=== PATIENT | female | born 1985 | race Caucasian/White ===

== ENCOUNTER 2019-11-29 04:48 | Observation (INO) | payer BC, SELFPAY ==
[2019-11-29] VITALS (46 sets, daily range): BP systolic 116–165; BP diastolic 70–100; PULSE 65–99; RESP 18; TEMP 36.1–36.9; O2SAT 97–100; BMI 28.0
--- NOTE | ~2019-11-29 | US_ITS ---
EXAMINATION: US OB limited w BPP DATE: 11/29/2019 08:02 CDT INDICATION: Vaginal bleeding. Check placenta. TECHNIQUE: Real-time transabdominal obstetric ultrasound. FINDINGS: No prior studies for comparison There is a single living fetus in vertex presentation. The placenta is posterior. The placenta abuts the cervix with 2 adjacent hypoechoic areas, suspicious for marginal placental hemorrhage. These are as measure 2.2 x 2.5 x 1.3 cm and 2.9 x 2.3 x 0.8 cm respectively. cardiac activity and movement is noted with a heart rate of 144 beats per minute. Biophysical profile: breathin of 2 movement: 2 of 2 tone: 2 of 2 Amniotic flud pocket: 2 of 2 Total score: 8 of 8 IMPRESSION: 1. Single living intrauterine in vertex presentation. 2: Total biophysical profile score of 8/8. 3: Low-lying marginal placenta which abuts the cervix. 2 hypoechoic areas are identified along the ma rgin of the placenta, suspicious for marginal placental hemorrhage. Reviewed, dictated and finalized at location A. IMPRESSION: 1. Single living intrauterine in vertex presentation. 2: Total biophysical profile score of 8/8. 3: Low-lying marginal placenta which abuts the cervix. 2 hypoechoic areas are i dentified along the margin of the placenta, suspicious for marginal placental h emorrhage.
[2019-11-29] MEDS: TERBUTALINE SULFATE 1 MG/ML VIAL 0.25 MG SUB-Q (05:31)
[2019-11-29 06:05] LABS: Basophils Absolute Auto 0.1 K/mm3 (0.0-0.1); Basophils Percent Auto 0.6 % (0.2-1.2); Eosinophils Absolute Auto 0.2 K/mm3 (0-0.3); Eosinophils Percent Auto 2.2 % (0-4.4); Hematocrit 27.7 % (37.0-47.0); Hemoglobin 9.3 g/dL (12.0-15.0); Immature Granulocyte Absolute 0.06 K/mm3 (0.00-0.031); Immature Granulocyte Percent A 0.6 % (0-0.5); Lymphocytes Absolute Auto 3.31 K/mm3 (0.9-3.2); Lymphocytes Percent Auto 35.4 % (18.3-44.2); Mean Corpuscular HGB Conc 33.6 g/dl (32-36); Mean Corpuscular Hemoglobin 30.4 pg (26-34); Mean Corpuscular Volume 90.5 fl (80-100); Mean Platelet Volume 12.6 fl (7.4-10.4); Monocytes Absolute Auto 1.1 K/mm3 (0.1-0.6); Monocytes Percent Auto 11.9 % (2.6-8.5); Neutrophils Absolute Auto 4.6 K/mm3 (1.3-6.7); Neutrophils Percent Auto 49.3 % (45.5-73.1); Platelet Count Result 188 k/mm3 (150-375); Red Blood Count 3.06 M/mm3 (4.2-5.4); Red Cell Distribution Width 13.3 % (11.5-14.5); White Blood Count 9.4 K/mm3 (4.5-10.0)
[2019-11-29 06:18] LABS: Alanine Aminotransferase 8 U/L (4-35); Albumin Level 2.9 g/dL (3.5-5.1); Alkaline Phosphatase 201 U/L (38-126); Aspartate Amino Transferase 19 U/L (14-36); Bilirubin,Total 0.3 mg/dL (0.2-1.3); Blood Urea Nitrogen 10 mg/dL (7-17); Calcium 8.4 mg/dL (8.4-10.2); Carbon Dioxide 19 mmol/L (22-30); Chloride 109 mmol/L (98-107); Estimated Glomerular Filt Rate > 60; Glucose 70 mg/dL (65-105); Potassium 3.9 mmol/L (3.4-5.0); Sodium 135 mmol/L (137-145)
[2019-11-29 06:20] LABS: Add Urine Microscopic? YES; Appearance Urine Clear (Clear); Bacteria Urine Trace /hpf; Bilirubin Urine Negative (Negative); Blood Urine 3+ (Negative); Color Urine Yellow (Yellow); Glucose Urine UA Negative (Negative); Ketones Urine Negative (Negative); Leukocyte Esterase Ur Negative LEU/UL (Negative); Nitrate Urine Negative (Negative); Protein Urine 3+ mg/dL (Negative); Squamous Epithelial Cell Urine Rare /hpf (Few); Urobilinogen Urine Negative mg/dL (<2.0); WBC Urine 0-3 /hpf
--- NOTE | 2019-11-29 06:41 | OBADM ---
This patient, Nadege Thompson, admitted to the OB room OB Post 117 for observation. Patient/family oriented to hospital policies and general routines including ID bracelet, bed and alarms, visiting hours, pain management, procedures, bathroom and other care routines, personal items, smoking policy, room service/diet, and visiting hours. Patient/Family are encouraged to report perceived risks to care and to ask questions if they do not understand what they are told or what they should do.
[2019-11-29] MEDS: BETAMETHASONE SOD PHOS/ACETATE 30 MG/5 ML VIAL 12 MG IM (09:32)
--- NOTE | 2019-11-29 12:28 | PM.IMHP ---
H&P: HPI History of Present Illness Chief complaint: vag bleeding Narrative: 34 y/o G1 at 35 2/7 weeks (by LMP 03/27/19 giving EDC 01/01/20), here after a gush of blood at 0430 today. Feels low abdominal pressure. Initially had some uterine irritablilty, but this has resolved. Pregancy complicated by placenta previa. Also had a positive sequential screen leading to a genetic amniocentesis which was negative. Opos/RI/HepBSAg neg/RPR neg/ HIV neg. Noted to have mildly elevated bp. No headache, visual field change. Review of Systems Review of Systems: All systems reviewed & are unremarkable except as noted in HPI and below [facility] Past Medical History Medical History (Updated 11/29/19 @ 12:38 by Adalberto Tian MD) Depression affecting Irritable bowel syndrome affecting Migraine Meds Home Medications and Allergies Home Medications Medication Instructions Recorded Confirmed Type amitriptyline 10 mg PO HS 11/29/19 11/29/19 History calcium carbonate [Tums E-X] 600 mg PO QID PRN 11/29/19 11/29/19 History escitalopram oxalate 20 mg PO DAILY 11/29/19 11/29/19 History zolpidem 10 mg PO HS PRN 11/29/19 11/29/19 History Allergies Allergy/AdvReac Type Severity Reaction Status Date / Time sulfamethoxazole Allergy Unknown Hives Verified 11/29/19 09:28 trimethoprim Allergy Unknown Seizure Verified 11/29/19 09:28 yellow dye Allergy Unknown Swelling Unverified 11/29/19 09:28 of Lip/Tongue/Throat Vital Signs Vital Signs - 24 hr 11/29/19 04:59 11/29/19 05:00 11/29/19 05:02 Temperature Pulse Rate 74 70 Respiratory Rate Blood Pressure 163/95 H 158/100 H Pulse Oximetry 100 11/29/19 05:04 11/29/19 05:09 11/29/19 05:14 Temperature Pulse Rate Respiratory Rate Blood Pressure Pulse Oximetry 100 99 100 11/29/19 05:15 11/29/19 05:19 11/29/19 05:24 Temperature Pulse Rate 71 Respiratory Rate Blood Pressure 139/98 H Pulse Oximetry 99 99 11/29/19 05:29 11/29/19 05:34 11/29/19 05:39 Temperature Pulse Rate Respiratory Rate Blood Pressure Pulse Oximetry 99 100 100 11/29/19 05:44 11/29/19 05:48 11/29/19 05:49 Temperature Pulse Rate 81 Respiratory Rate Blood Pressure 136/90 Pulse Oximetry 100 99 11/29/19 06:44 11/29/19 06:45 11/29/19 06:50 Temperature 36.1 C L Pulse Rate 79 Respiratory Rate 18 Blood Pressure 137/89 Pulse Oximetry 99 99 11/29/19 06:55 11/29/19 07:00 11/29/19 07:05 Temperature Pulse Rate 83 Respiratory Rate Blood Pressure 131/77 Pulse Oximetry 99 99 98 11/29/19 07:10 11/29/19 07:15 11/29/19 07:20 Temperature Pulse Rate Respiratory Rate Blood Pressure Pulse Oximetry 99 97 97 11/29/19 07:30 11/29/19 07:50 11/29/19 07:55 Temperature Pulse Rate 99 Respiratory Rate Blood Pressure 165/96 H Pulse Oximetry 99 98 11/29/19 08:00 11/29/19 08:01 11/29/19 08:30 Temperature Pulse Rate 78 76 Respiratory Rate Blood Pressure 127/84 136/92 H Pulse Oximetry 99 11/29/19 09:00 11/29/19 10:00 11/29/19 11:00 Temperature Pulse Rate 72 70 79 Respiratory Rate Blood Pressure 146/91 H 135/91 H 138/87 Pulse Oximetry 11/29/19 12:00 Temperature Pulse Rate 87 Respiratory Rate Blood Pressure 143/85 H Pulse Oximetry Exam Const: Orientation/consciousness: patient oriented x3 Other: Well-developed, well-nourished female in no acute distress. Neck: Thyroid: thyroid normal Lymphatic: no lymphadenopathy noted (in neck, axilla or inguinal nodes) Resp: Effort & Inspection: normal respiratory effort Auscultation: clear to auscultation bilaterally Cardio: Rate: regular rate Rhythm: regular rhythm Heart sounds: S1 normal heart sound present and S2 normal heart sound present GI: Other: ABD: Soft, nontender, nondistended. No guarding or rebound tenderness. No hepatosplenomegaly. Gravid. NST reactive. TOCO: no con
--- NOTE | 2019-11-29 13:45 | PC.NURSE ---
Discussed pt's allergy to yellow dye and prompt that showed potential for allergic reaction when I started to enter order for Tylenol ES. Pharmacy checked ingredient list and verified there is no yellow dye in our Tylenol ES.
[2019-11-29] MEDS: ACETAMINOPHEN 500 MG TABLET 1000 MG PO (14:00)
--- NOTE | 2019-11-29 16:41 | PHAR ---
The patient's home meds of Tums EX 750mg, Escitalopram 20mg, Zolpidem 10mg, and Amitriptyline 10mg have been verified.
[2019-11-29] MEDS: ONDANSETRON HCL ODT 4 MG TABLET PO (21:49)
[2019-11-30] MEDS: ACETAMINOPHEN 500 MG TABLET 1000 MG PO ×2 (03:14→09:42)
[2019-11-30 03:24] VITALS: RESP 20; TEMP 36.6
[2019-11-30 03:25] VITALS: BP 125/75; PULSE 78
[2019-11-30 04:16] LABS: Hematocrit 26.3 % (37.0-47.0); Mean Corpuscular HGB Conc 34.2 g/dl (32-36); Mean Corpuscular Hemoglobin 30.9 pg (26-34); Mean Corpuscular Volume 90.4 fl (80-100); Mean Platelet Volume 12.3 fl (7.4-10.4); Platelet Count Result 156 k/mm3 (150-375); Red Blood Count 2.91 M/mm3 (4.2-5.4); Red Cell Distribution Width 13.2 % (11.5-14.5); White Blood Count 10.6 K/mm3 (4.5-10.0)
[2019-11-30 04:34] LABS: Alanine Aminotransferase 10 U/L (4-35); Alkaline Phosphatase 208 U/L (38-126); Aspartate Amino Transferase 21 U/L (14-36); Bilirubin,Total 0.3 mg/dL (0.2-1.3); Blood Urea Nitrogen 11 mg/dL (7-17); Calcium 9.4 mg/dL (8.4-10.2); Carbon Dioxide 20 mmol/L (22-30); Chloride 106 mmol/L (98-107); Estimated CRCL calculation 66 ml/min; Estimated Glomerular Filt Rate > 60; Glucose 112 mg/dL (65-105); Potassium 4.5 mmol/L (3.4-5.0); Sodium 132 mmol/L (137-145); Uric Acid 8.1 mg/dL (2.5-7.5)
[2019-11-30 06:22] VITALS: BP 137/83; PULSE 85; TEMP 36.4
[2019-11-30] MEDS: BETAMETHASONE SOD PHOS/ACETATE 30 MG/5 ML VIAL 12 MG IM (09:30)
[2019-11-30 10:03] VITALS: BP 136/91; PULSE 84; PULSE 89
--- NOTE | 2019-11-30 10:33 | PC.NURSE ---
Verified with pharmacy that the Procardia capsule the hospital is currently using doesn't contain yellow dye. It does have a blue and a red dye in it.
[2019-11-30 10:41] VITALS: BP 135/85; PULSE 83
[2019-11-30] MEDS: NIFEdipine 10 MG CAPSULE PO ×2 (10:42→11:46)
--- NOTE | 2019-11-30 11:27 | P.PNOB_ITS ---
OB - PN: Subj Subjective Date/time seen: 11/30/19 11:27 Narrative: Feels occasional contractions. No vaginal bleeding. 24 hour urine collection nearly finished. No headache. Low abdominal pressure is intermittent, but not present currently. OB - PN: Obj Data Labs CBC & Chem 7: 11/30/19 04:10 11/30/19 04:10 Labs: Laboratory Results - last 24 hr 11/30/19 11/30/19 04:10 04:10 WBC 10.6 H RBC 2.91 L Hgb 9.0 L Hct 26.3 L MCV 90.4 MCH 30.9 MCHC 34.2 RDW 13.2 Plt Count 156 MPV 12.3 H Sodium 132 L Potassium 4.5 Chloride 106 Carbon Dioxide 20 L BUN 11 Creatinine 0.90 Estim Creat Clear Calc 66 Estimated GFR > 60 Glucose 112 H Uric Acid 8.1 H Calcium 9.4 Total Bilirubin 0.3 AST 21 ALT 10 Alkaline Phosphatase 208 H Total Protein 6.0 L Albumin 3.0 L OB - PN A/P Assessment and Plan (1) Preeclampsia: Code(s): O14.90 - Unspecified pre-eclampsia, unspecified trimester Status: Acute Assessment and Plan: Have finished betamethasone course. Plan to send home after 24 hour urine collection is complete. Plan Procardia 10 mg po q 6 hours in an effort to reduc e chances of vaginal bleeding. I will phone her tomorrow with results. (2) Vaginal bleeding in patient after first trimester with placenta previa: Code(s): O44.31 - Partial placenta previa with hemorrhage, first trimester Status: Acute Review of Systems Review of Systems: All systems reviewed & are unremarkable except as noted in HPI and below Exam Const: Other: AVSS. BP 130-140/80-90 Resp: Effort & Inspection: normal respiratory effort Cardio: Rate: regular rate GI: Other: Abdomen soft, nontender, gravid. NST reactive. TOCO: occasional contractions, have improved after a dose of nifedipine. Bedside ultrasound exam by me is unchanged from yesterday. Marginal posterior previa. No suggestion today of abruptio. Vertex. Adequate AFV. motion and breathing noted.
[2019-11-30] MEDS: FAMOTIDINE 20 MG/2 ML VIAL IV PUSH (11:49)
[2019-11-30 11:53] VITALS: BMI 34.3
[2019-11-30 12:42] LABS: Collection Time Urine 24 HOURS
[2019-11-30 12:55] LABS: Patient Weight 175 Lbs; Total Volume 24 Hour Urine 1400 ml
[2019-11-30 13:01] LABS: Creatinine Clearance Urine 74.3 ml/min (75-125); Creatinine Urine 69.9 mg/dL; Total Protein Urine Random 84 mg/dL
[2019-11-30 13:05] LABS: Total Protein Urine 24 Hr 1176 MG/DAY (28-141)
== END 2019-11-30 12:32 | disposition home or self-care (01) ==
PROVIDERS: Admitting Provider Obstetrics & Gynecology; Visit Provider Obstetrics & Gynecology
DX: O44.33 Partial placenta previa with hemorrhage, third trimester (principal); O14.93 Unspecified pre-eclampsia, third trimester; Z3A.35 35 weeks gestation of pregnancy
CPT/HCPCS: 36415; 59025; 76815; 76819; 80053; 81001; 81050; 82575; 84156; 84550; 85025; 85027; 96372; 96374; A9270; G0378; G0379; J0702; J3105

== ENCOUNTER 2019-12-01 15:29 | Inpatient (IN) | payer BC, SELFPAY ==
[2019-12-01] VITALS (80 sets, daily range): BP systolic 75–143; BP diastolic 46–118; PULSE 63–236; RESP 12–18; TEMP 36.2–37; O2SAT 82–100; BMI 33.5
--- NOTE | 2019-12-01 15:58 | OBADM ---
This patient, Nadege Thompson, admitted to the OB room Labor/Delivery/Recovery 120 for observation. Patient/family oriented to hospital policies and general routines including ID bracelet, bed and alarms, visiting hours, pain management, procedures, bathroom and other care routines, personal items, smoking policy, room service/diet, and visiting hours. Patient/Family are encouraged to report perceived risks to care and to ask questions if they do not understand what they are told or what they should do.
[2019-12-01 16:28] LABS: Hematocrit 25.2 % (37.0-47.0); Hemoglobin 8.3 g/dL (12.0-15.0); Immature Platelet Fraction Pct 10.1 % (0.9-11.2); Mean Corpuscular HGB Conc 32.9 g/dl (32-36); Mean Platelet Volume 13.2 fl (7.4-10.4); Platelet Count Result 203 k/mm3 (150-375); Red Blood Count 2.68 M/mm3 (4.2-5.4); Red Cell Distribution Width 13.7 % (11.5-14.5); White Blood Count 15.7 K/mm3 (4.5-10.0)
[2019-12-01 16:42] LABS: Alanine Aminotransferase 13 U/L (4-35); Alkaline Phosphatase 191 U/L (38-126); Aspartate Amino Transferase 36 U/L (14-36); Bilirubin,Total 0.3 mg/dL (0.2-1.3); Blood Urea Nitrogen 18 mg/dL (7-17); Calcium 8.1 mg/dL (8.4-10.2); Carbon Dioxide 20 mmol/L (22-30); Chloride 109 mmol/L (98-107); Estimated Glomerular Filt Rate 58; Glucose 137 mg/dL (65-105); Potassium 4.1 mmol/L (3.4-5.0); Sodium 134 mmol/L (137-145); Uric Acid 9.3 mg/dL (2.5-7.5)
[2019-12-01 16:49] LABS: Lymphocytes Absolute Manual 1.09 K/mm3 (1.1-4.5); Metamyelocytes Percent 4 %; Monocytes Absolute Manual 0.94 K/mm3 (0.1-0.90); Monocytes Percent Manual 6 % (3-9); Neutrophils Percent Manual 83 % (46-73); Nucleated Red Blood Cells 1 %; Total Cells Counted 100
[2019-12-01 16:51] LABS: Platelet Estimate Adequate (Adequate)
[2019-12-01] MEDS: FAMOTIDINE 20 MG/2 ML VIAL IV PUSH (17:38)
[2019-12-01] MEDS: ONDANSETRON INJ 4 MG/2 ML VIAL IV PUSH ×2 (17:39→22:44)
[2019-12-01] MEDS: LACTATED RINGERS 1,000 ML 125 ML IV CONT (17:43)
--- NOTE | 2019-12-01 17:47 | LDADM ---
This patient, Nadege Thompson, was admitted to Labor/Delivery/Recovery 120 on 12/01/19 at 15:30. Plans for labor, pain management and were discussed with patient. Patient/family oriented to hospital policies and general routines including ID bracelet, bed and alarms, visiting hours, pain management, procedures, bathroom and other care routines, personal items, smoking policy, room service/diet and guest tray routines, security routines, and visiting hours. Patient/Family are encouraged to report perceived risks to care and to ask questions if they do not understand what they are told or what they should do. See OBIX for further documentation.
--- NOTE | 2019-12-01 18:11 | PM.IMHP ---
H&P: HPI History of Present Illness Chief complaint: headache Narrative: 34 y/o G1 at 35 4/7 weeks here complaining of headache. 24 hour urine just resulted at 1176mg protein. Headache began at 1300. No vaginal bleeding. Had some visual blurring for a few seconds at 1400, but none since. Also complaining of heartburn. Good movement. No contractions. Had a cough for a couple hours yesterday, none today. No fever. No sick contacts. Review of Systems Review of Systems: All systems reviewed & are unremarkable except as noted in HPI and below PMFSH Past Medical History Medical History Depression affecting Irritable bowel syndrome affecting Migraine Social History Social History Smoking status: Former smoker Substance use: never Gender identity (if verbalized by the patient): Female Spiritual care concerns: No Meds Home Medications and Allergies Home Medications Medication Instructions Recorded Confirmed Type amitriptyline 10 mg PO HS 11/29/19 11/29/19 History calcium carbonate [Tums Extra 600 mg PO QID PRN 11/29/19 11/29/19 History Strength Smoothies] escitalopram oxalate 20 mg PO HS 11/29/19 11/29/19 History zolpidem 10 mg PO HS PRN 11/29/19 11/29/19 History ferrous sulfate 325 mg PO BID #30 tablet 11/30/19 Rx nifedipine [Procardia] 10 mg PO Q6H #30 cap 11/30/19 Rx Allergies Allergy/AdvReac Type Severity Reaction Status Date / Time sulfamethoxazole Allergy Unknown Hives Verified 11/29/19 09:28 trimethoprim Allergy Unknown Seizure Verified 11/29/19 09:28 yellow dye Allergy Unknown Swelling Verified 11/29/19 13:52 of Lip/Tongue/Throat Vital Signs Vital Signs - 24 hr 12/01/19 16:01 12/01/19 16:30 12/01/19 16:31 Temperature 37.0 C Pulse Rate 86 84 Blood Pressure 130/88 119/80 Pulse Oximetry 12/01/19 16:46 12/01/19 17:01 12/01/19 17:16 Temperature Pulse Rate 74 86 79 Blood Pressure 111/72 120/78 127/82 Pulse Oximetry 12/01/19 17:25 12/01/19 17:31 12/01/19 17:36 Temperature Pulse Rate 81 Blood Pressure 137/87 Pulse Oximetry 86 L 100 100 12/01/19 17:41 12/01/19 17:46 12/01/19 17:51 Temperature Pulse Rate 71 Blood Pressure 132/118 H Pulse Oximetry 100 99 100 12/01/19 17:56 12/01/19 18:01 12/01/19 18:06 Temperature Pulse Rate 79 Blood Pressure 138/86 Pulse Oximetry 100 100 100 Exam Const: Orientation/consciousness: patient oriented x3 Other: Well-developed, well-nourished female in no acute distress. Neck: Thyroid: thyroid normal Lymphatic: no lymphadenopathy noted (in neck, axilla or inguinal nodes) Resp: Effort & Inspection: normal respiratory effort Auscultation: clear to auscultation bilaterally Cardio: Rate: regular rate Rhythm: regular rhythm Heart sounds: S1 normal heart sound present and S2 normal heart sound present GI: Other: ABD: Soft, nontender, nondistended. Gravid. No guarding or rebound tenderness. No hepatosplenomegaly. FHR 140 reactive, category I. TOCO: no contractions. : General: Yes no CVA tenderness Other: Deferred. Back/Spine/Pelvis: Back: no CVA tenderness Skin: General skin exam: normal color and no rashes or lesions noted Neuro: General: patient oriented x3 Extrem: Other: Extremities: nontender with 1+ edema. Psych: Mental Status: mental status grossly normal Affect: normal affect H&P: Results Labs Labs: Short CBC 12/01/19 Range/Units 16:03 WBC 15.7 H (4.5-10.0) K/mm3 Hgb 8.3 L (12.0-15.0) g/dL Hct 25.2 L (37.0-47.0) % Plt Count 203 (150-375) k/mm3 BMP 12/01/19 16:03 Sodium 134 L Potassium 4.1 Chloride 109 H Carbon Dioxide 20 L BUN 18 H Creatinine 1.10 H Glucose 137 H Calcium 8.1 L Liver Function 12/01/19 Range/Units 16:03 Total Bilirubin 0.3 (0.2-1.3) mg/dL AST 36
--- NOTE | 2019-12-01 18:24 | WPDANESEPPF ---
Anes - Initial Pre Proc Eval Date/Time: 12/01/19 18:24 Surgeon: Adalberto Tian MD Pre Op Diagnosis: headache Patient Data Age: 34 Gender: F Height: 5 ft Weight: 78 kg Last Vital Signs Temp 36.6 C 12/01/19 17:30 Pulse 79 12/01/19 18:01 BP 138/86 12/01/19 18:01 Pulse Ox 100 12/01/19 18:06 Allergies Allergy/AdvReac Type Severity Reaction Status Date / Time sulfamethoxazole Allergy Unknown Hives Verified 11/29/19 09:28 trimethoprim Allergy Unknown Seizure Verified 11/29/19 09:28 yellow dye Allergy Unknown Swelling Verified 11/29/19 13:52 of Lip/Tongue/Throat Home Medications Medication Instructions Recorded Confirmed Type amitriptyline 10 mg PO HS 11/29/19 11/29/19 History calcium carbonate [Tums Extra 600 mg PO QID PRN 11/29/19 11/29/19 History Strength Smoothies] escitalopram oxalate 20 mg PO HS 11/29/19 11/29/19 History zolpidem 10 mg PO HS PRN 11/29/19 11/29/19 History ferrous sulfate 325 mg PO BID #30 tablet 11/30/19 Rx nifedipine [Procardia] 10 mg PO Q6H #30 cap 11/30/19 Rx Laboratory Tests 12/01/19 12/01/19 12/01/19 16:03 16:03 17:19 WBC 15.7 K/mm3 H K/mm3 (4.5-10.0) RBC 2.68 M/mm3 L M/mm3 (4.2-5.4) Hgb 8.3 g/dL L g/dL (12.0-15.0) Hct 25.2 % L % (37.0-47.0) MCV 94.0 fl fl (80-100) MCH 31.0 pg pg (26-34) MCHC 32.9 g/dl g/dl (32-36) RDW 13.7 % % (11.5-14.5) Plt Count 203 k/mm3 k/mm3 (150-375) MPV 13.2 fl H fl (7.4-10.4) Immature Gran % (Auto) Not Reportable Neut % (Auto) Not Reportable Lymph % (Auto) Not Reportable [place] % (Auto) Not Reportable Eos % (Auto) Not Reportable Baso % (Auto) Not Reportable Lymph # (Auto) Not Reportable [place] # (Auto) Not Reportable Eos # (Auto) Not Reportable Baso # (Auto) Not Reportable Abs Immat Gran (auto) Not Reportable Absolute Neuts (auto) Not Reportable Absolute Nucleated RBC Not Reportable Total Counted 100 Neutrophils % (Manual) 83 % H % (46-73) Lymphocytes % (Manual) 7.0 % L % (18-44) Monocytes % (Manual) 6 % % (3-9) Metamyelocytes % 4 % % Nucleated RBC % Not Reportable Abs Lymphs (Manual) 1.09 K/mm3 L K/mm3 (1.1-4.5) Abs Monocytes (Manual) 0.94 K/mm3 H K/mm3 (0.1-0.90) Nucleated RBCs 1 % % Platelet Estimate Adequate (Adequate) % Immature Plt Fraction 10.1 % % (0.9-11.2) Sodium 134 mmol/L L mmol/L (137-145) Potassium 4.1 mmol/L mmol/L (3.4-5.0) Chloride 109 mmol/L H mmol/L (98-107) Carbon Dioxide 20 mmol/L L mmol/L (22-30) BUN 18 mg/dL H mg/dL (7-17) Creatinine 1.10 mg/dL H mg/dL (0.7-1.0) Estim Creat Clear Calc Not Reportable Estimated GFR 58 L (59 - ) Glucose 137 mg/dL H mg/dL (65-105) Uric Acid 9.3 mg/dL H mg/dL (2.5-7.5) Calcium 8.1 mg/dL L mg/dL (8.4-10.2) Total Bilirubin 0.3 mg/dL mg/dL (0.2-1.3) AST 36 U/L U/L (14-36) ALT 13 U/L U/L (4-35) Alkaline Phosphatase 191 U/L H U/L (38-126) Total Protein 6.0 g/dL L g/dL (6.3-8.2) Albumin 3.0 g/dL L g/dL (3.5-5.1) RPR Pending SARS-CoV-2 RNA (RT-PCR) Blood Type Antibody Screen 12/01/19 12/01/19 17:19 18:08 WBC RBC Hgb Hct MCV MCH MCHC RDW Plt Count MPV Immature Gran % (Auto) Neut % (Auto) Lymph % (Auto) [place] % (Auto) Eos % (Auto) Baso % (Auto) Lymph # (Auto) [place] # (Aut
--- NOTE | 2019-12-01 19:51 | P.PCNOB_ITS ---
OB - Delivery Note Procedure Delivery date: 12/01/19 Procedure: Procedures Operation Date: 12/01/19 18:45 <No data on this case meets the specified criteria> Primary low transverse delivery events: Pre-Eclampsia Estimated blood loss (mL): 600 Anesthesia type: Spinal Disposition: PACU Complications: None Narrative: The patient was taken to the operating room where she was prepared and draped in the usual sterile fashion in dorsal supine position with a le ftward tilt. She received cefazolin preoperatively. Spinal anesthesia was found to be adequate. A Pfannenstiel skin incision was made and carried through to the underlying layer of the fascia. The fascia was incised in the midline and the incision was extended laterally. The fascia was dissected free of the underlying rectus muscles. The rectus muscles were in the midline. The peritoneum was identified, tented up and entered sharply. The peritoneal incision was extended superiorly and inferiorly with good visualization of the bladder. The bladder blade was placed. The vesicouterine peritoneum was identified, tented up and entered sharply. The incision was extended laterally and the bladder flap was developed. The bladder blade was replaced. The uterus was then incised sharply in a transverse fashion along the lower uterine segment. The incision was extended laterally. The infant's head was delivered atraumatically to the sterile field, followed by the body. The nose and mouth were bulb suctioned. After a delay, the cord was clamped and cut. The infant was handed off the field. Cord blood was collected. The placenta was removed manually and was passed off the field. The uterus was exteriorized and cleared of all clots and debris. The uterine incision was reapproximated using 0 Monocryl in a running, locked fashion. A second, imbricating layer of the same suture was placed. Excellent hemostasis resulted as did excellent reapproximation of the normal anatomy. The uterus was returned the abdomen. The pelvis was irrigated copiously with warmed normal saline. Rigorous hemostasis was assured. The fascial layer was reapproximated using 0 Vicryl in a running fashion. The skin was closed with a running, subcuticular stitch of 4 0 Vicryl. Dermaflex was applied externally. Sponge, lap, needle and instrument counts were correct. The patient was taken to the recovery room in stable condition. The infant went to the nursery in stable condition. I was present and scrubbed the entire procedure. [place] Baby Date of : 12/01/19 Time of : 19:52 Weeks of gestation at delivery: 35 gender: Female Weight (pounds): 5 Weight (ounces): 1 presentation: vertex Placenta delivery description: Manual Removal and Normal Configuration cord vessel description: 3 Vessels score one minute: 8 score five minutes: 8
--- NOTE | 2019-12-01 19:53 | PM.OBDSVD ---
DS: Diagnosis Admitting Diagnosis Admitting Diagnosis: IUP at 35 weeks Preeclampsia Headache Placenta previa OB - DS: Summary OB Procedures : PIH Mgmt OB Procedures Intrapartum: OB Procedures: : Transfusion Peripartum Data Procedures: Procedures Operation Date: 12/01/19 18:45 <No data on this case meets the specified criteria> Primary LTCS Time Spent with Patient Time attestation: Total time spent providing and/or coordinating discharge services: DS: Data Data Completed and Pending Labs on day of discharge: Labs from last 24 hours 12/01/19 12/01/19 12/01/19 18:30 18:08 17:19 WBC RBC Hgb Hct MCV MCH MCHC RDW Plt Count MPV Immature Gran % (Auto) Neut % (Auto) Lymph % (Auto) [place] % (Auto) Eos % (Auto) Baso % (Auto) Lymph # (Auto) [place] # (Auto) Eos # (Auto) Baso # (Auto) Abs Immat Gran (auto) Absolute Neuts (auto) Absolute Nucleated RBC Total Counted Neutrophils % (Manual) Lymphocytes % (Manual) Monocytes % (Manual) Metamyelocytes % Nucleated RBC % Abs Lymphs (Manual) Abs Monocytes (Manual) Nucleated RBCs Platelet Estimate % Immature Plt Fraction Sodium Potassium Chloride Carbon Dioxide BUN Creatinine Estim Creat Clear Calc Estimated GFR Glucose Uric Acid Calcium Total Bilirubin AST ALT Alkaline Phosphatase Total Protein Albumin RPR Pending SARS-CoV-2 RNA (RT-PCR) Pending Blood Type O Positive Antibody Screen Negative 12/01/19 12/01/19 16:03 16:03 WBC 15.7 H RBC 2.68 L Hgb 8.3 L Hct 25.2 L MCV 94.0 MCH 31.0 MCHC 32.9 RDW 13.7 Plt Count 203 MPV 13.2 H Immature Gran % (Auto) Not Reportable Neut % (Auto) Not Reportable Lymph % (Auto) Not Reportable [place] % (Auto) Not Reportable Eos % (Auto) Not Reportable Baso % (Auto) Not Reportable Lymph # (Auto) Not Reportable [place] # (Auto) Not Reportable Eos # (Auto) Not Reportable Baso # (Auto) Not Reportable Abs Immat Gran (auto) Not Reportable Absolute Neuts (auto) Not Reportable Absolute Nucleated RBC Not Reportable Total Counted 100 Neutrophils % (Manual) 83 H Lymphocytes % (Manual) 7.0 L Monocytes % (Manual) 6 Metamyelocytes % 4 Nucleated RBC % Not Reportable Abs Lymphs (Manual) 1.09 L Abs Monocytes (Manual) 0.94 H Nucleated RBCs 1 Platelet Estimate Adequate % Immature Plt Fraction 10.1 Sodium 134 L Potassium 4.1 Chloride 109 H Carbon Dioxide 20 L BUN 18 H Creatinine 1.10 H Estim Creat Clear Calc Not Reportable Estimated GFR 58 L Glucose 137 H Uric Acid 9.3 H Calcium 8.1 L Total Bilirubin 0.3 AST 36 ALT 13 Alkaline Phosphatase 191 H Total Protein 6.0 L Albumin 3.0 L RPR SARS-CoV-2 RNA (RT-PCR) Blood Type Antibody Screen Discharge Plan Discharge Attending physician on discharge: Adalberto Tian Discharging Clinician: Adalberto Tian Patient Disposition: Home, Self-Care Activity: may shower, may drive after 2 weeks and pelvic rest Diet: regular Wound Care Instructions: incision open to air Discharge Instructions: Call or return if temperature above 100.4? F, increased abdominal pain, increased vaginal bleeding or any new problems. Stand Alone Forms: General Discharge Information Follow-up/Referrals: Adalberto Tian MD [Physician] - (4 weeks) Discharge Medications: New KPN Tablet 1 tablet PO DAILY Qty: 90 RF: 0 oxycodone-acetaminophen [Percocet] 5-325 mg tablet 1 - 2 tablet PO Q6H PRN (Reason: pain) Qty: 30 RF: 0 ibuprofen 600 mg tablet 600 mg PO Q6H PRN (Reason: cramps) Qty: 30 RF: 0 Niferex (Sumalate-Quatrefolic) 150 mg iron- 60 mg-1 mg tablet 1 tablet PO DAILY Qty: 30 RF: 0 Continued amitriptyline 10 mg tablet 10 mg PO HS RF: 0 escitalo
[2019-12-01] MEDS: OXYTOCIN 30 UNITS/NS 500 ML 30 UNITS/500 ML BAG 125 UNITS (20:27)
[2019-12-01] MEDS: MAGNESIUM SULF 4 GM/WATER100ML 4 GM/100 ML BAG IVPB (20:27)
--- NOTE | 2019-12-01 20:27 | SUR.PHASEI ---
MAGNESIUM BOLUS INITIATED PER ORDER. Scott AVILES RN AT BEDSIDE TO VERIFY MAGNESIUM INFUSION RATE.
[2019-12-01] MEDS: MORPHINE SULFATE 2 MG/ML INJ 3 MG IV PUSH ×2 (20:32→21:15)
[2019-12-01] MEDS: MAGNESIUM SULF 20GM/WATER500ML 500 ML 25 MG IV CONT (21:00)
--- NOTE | 2019-12-01 21:00 | SUR.PHASEI ---
MAGNESIUM BOLUS COMPLETED, MAGNESIUM MAINTENANCE DOSE STARTED. Scott AVILES AT BESIDE TO VERIFY MAGNESIUM INFUSION RATE.
--- NOTE | 2019-12-01 21:30 | SUR.PHASEI ---
[facility] PERFORMED PRIOR TO TRANSFER. UNDERPAD, GOWN AND LINENS CHANGED. PATIENT STATES PAIN IS 2/10 AND SHE IS ABLE TO REST COMFORTABLY.
--- NOTE | 2019-12-01 22:00 | PC.NURSE ---
Patient tolerating clear liquid diet at time of transfer without complaint of nasuea or emesis. Patient resting comfortably. Report given to AZUL Cabrera on unit for transfer.
[2019-12-01] MEDS: LORATADINE 10 MG TABLET PO (22:08)
[2019-12-01] MEDS: KETOROLAC 30 MG/ML VIAL (*BKC) IV PUSH (22:39)
[2019-12-01] MEDS: LACTATED RINGERS 500 ML 999 ML IV CONT (23:30)
[2019-12-01] MEDS: MISOPROSTOL 200 MCG TABLET 1000 MCG RECTAL (23:44)
[2019-12-01 23:51] LABS: Hematocrit 17.1 % (37.0-47.0); Hemoglobin 5.5 g/dL (12.0-15.0)
[2019-12-02] VITALS (24 sets, daily range): BP systolic 85–168; BP diastolic 60–114; PULSE 68–119; RESP 12–18; TEMP 36.3–37.1; O2SAT 92–100
--- NOTE | 2019-12-02 00:10 | PM.OBPNVD ---
OB - PN: Subj Subjective Date/time seen: 12/02/19 00:10 Called to see patient. She has had an increase in vaginal bleeding (total approximately 300mL), is pale and complains of incisional burning. No headache. OB - PN: Obj Data Labs CBC & Chem 7: 12/01/19 23:34 12/01/19 16:03 Labs: Laboratory Results - last 24 hr 12/01/19 12/01/19 12/01/19 16:03 16:03 18:30 WBC 15.7 H RBC 2.68 L Hgb 8.3 L Hct 25.2 L MCV 94.0 MCH 31.0 MCHC 32.9 RDW 13.7 Plt Count 203 MPV 13.2 H Immature Gran % (Auto) Not Reportable Neut % (Auto) Not Reportable Lymph % (Auto) Not Reportable [place] % (Auto) Not Reportable Eos % (Auto) Not Reportable Baso % (Auto) Not Reportable Lymph # (Auto) Not Reportable [place] # (Auto) Not Reportable Eos # (Auto) Not Reportable Baso # (Auto) Not Reportable Abs Immat Gran (auto) Not Reportable Absolute Neuts (auto) Not Reportable Absolute Nucleated RBC Not Reportable Total Counted 100 Neutrophils % (Manual) 83 H Lymphocytes % (Manual) 7.0 L Monocytes % (Manual) 6 Metamyelocytes % 4 Nucleated RBC % Not Reportable Abs Lymphs (Manual) 1.09 L Abs Monocytes (Manual) 0.94 H Nucleated RBCs 1 Platelet Estimate Adequate % Immature Plt Fraction 10.1 Sodium 134 L Potassium 4.1 Chloride 109 H Carbon Dioxide 20 L BUN 18 H Creatinine 1.10 H Estim Creat Clear Calc Not Reportable Estimated GFR 58 L Glucose 137 H Uric Acid 9.3 H Calcium 8.1 L Total Bilirubin 0.3 AST 36 ALT 13 Alkaline Phosphatase 191 H Total Protein 6.0 L Albumin 3.0 L Blood Type O Positive Antibody Screen Negative Crossmatch See Detail 12/01/19 23:34 WBC RBC Hgb 5.5 L* Hct 17.1 L* MCV MCH MCHC RDW Plt Count MPV Immature Gran % (Auto) Neut % (Auto) Lymph % (Auto) [place] % (Auto) Eos % (Auto) Baso % (Auto) Lymph # (Auto) [place] # (Auto) Eos # (Auto) Baso # (Auto) Abs Immat Gran (auto) Absolute Neuts (auto) Absolute Nucleated RBC Total Counted Neutrophils % (Manual) Lymphocytes % (Manual) Monocytes % (Manual) Metamyelocytes % Nucleated RBC % Abs Lymphs (Manual) Abs Monocytes (Manual) Nucleated RBCs Platelet Estimate % Immature Plt Fraction Sodium Potassium Chloride Carbon Dioxide BUN Creatinine Estim Creat Clear Calc Estimated GFR Glucose Uric Acid Calcium Total Bilirubin AST ALT Alkaline Phosphatase Total Protein Albumin Blood Type Antibody Screen Crossmatch OB - PN A/P Plan Comments: A: Anemia likely secondary to blood loss. Have treated with oxytocin, misoprostol 1000mcg MA, IV fluids. P: Plan transfusion of 2 units PRBCs. Hold magnesium sulfate for now. Exam Const: Other: BP 85/55. HR 88. SaO2 98% on RA. GI: Other: ABD soft, appropriately tender. Incision c/d/i. Fundus firm at umbilicus.
[2019-12-02] MEDS: MORPHINE SULFATE 2 MG/ML INJ IV PUSH (01:10)
[2019-12-02] MEDS: NALBUPHINE HCL 10 MG/ML AMPUL 2 MG IV PUSH ×4 (01:11→23:27)
[2019-12-02] MEDS: CARBOPROST TROMETHAMINE 250 MCG/ML AMPUL IM (02:02)
--- NOTE | 2019-12-02 03:21 | PC.NURSE ---
This patient, Nadege Thompson, was received from Labor and Delivery on 12/02/19 at 2207. Personal belongings list checked and signed. Patient/family oriented to unit policies and routines
[2019-12-02] MEDS: OXYTOCIN 30 UNITS/NS 500 ML 30 UNITS/500 ML BAG 125 UNITS IV CONT (03:40)
[2019-12-02 06:58] LABS: Rapid Plasma Reagin Non-Reactive (NonReactive)
--- NOTE | 2019-12-02 07:15 | PM.OBPNVD ---
OB - PN: Subj Subjective Date/time seen: 12/02/19 07:15 Interval history: Patient doing well this AM. She is worried about seeing her baby has the baby is being transferred. She is currently on isolation for potential COVID-19 exposure. She was tested last night and the results are pending. she has note yet ambulated our of bed. She has not yet attempted PO. She reports adequate pain control. Her bleeding is improved. She reports normal lochia. She denies fever, chills, N/V. She has not yet passed flatus. Patient comments: no complaints and pain well controlled; no flatus present OB - PN: Obj Data Labs CBC & Chem 7: 12/01/19 23:34 12/01/19 16:03 Labs: Laboratory Results - last 24 hr 12/01/19 12/01/19 12/01/19 16:03 16:03 17:19 WBC 15.7 H RBC 2.68 L Hgb 8.3 L Hct 25.2 L MCV 94.0 MCH 31.0 MCHC 32.9 RDW 13.7 Plt Count 203 MPV 13.2 H Immature Gran % (Auto) Not Reportable Neut % (Auto) Not Reportable Lymph % (Auto) Not Reportable [facility] % (Auto) Not Reportable Eos % (Auto) Not Reportable Baso % (Auto) Not Reportable Lymph # (Auto) Not Reportable [facility] # (Auto) Not Reportable Eos # (Auto) Not Reportable Baso # (Auto) Not Reportable Abs Immat Gran (auto) Not Reportable Absolute Neuts (auto) Not Reportable Absolute Nucleated RBC Not Reportable Total Counted 100 Neutrophils % (Manual) 83 H Lymphocytes % (Manual) 7.0 L Monocytes % (Manual) 6 Metamyelocytes % 4 Nucleated RBC % Not Reportable Abs Lymphs (Manual) 1.09 L Abs Monocytes (Manual) 0.94 H Nucleated RBCs 1 Platelet Estimate Adequate % Immature Plt Fraction 10.1 Sodium 134 L Potassium 4.1 Chloride 109 H Carbon Dioxide 20 L BUN 18 H Creatinine 1.10 H Estim Creat Clear Calc Not Reportable Estimated GFR 58 L Glucose 137 H Uric Acid 9.3 H Calcium 8.1 L Total Bilirubin 0.3 AST 36 ALT 13 Alkaline Phosphatase 191 H Total Protein 6.0 L Albumin 3.0 L RPR Non-reactive Blood Type Antibody Screen Crossmatch 12/01/19 12/01/19 18:30 23:34 WBC RBC Hgb 5.5 L* Hct 17.1 L* MCV MCH MCHC RDW Plt Count MPV Immature Gran % (Auto) Neut % (Auto) Lymph % (Auto) [facility] % (Auto) Eos % (Auto) Baso % (Auto) Lymph # (Auto) [facility] # (Auto) Eos # (Auto) Baso # (Auto) Abs Immat Gran (auto) Absolute Neuts (auto) Absolute Nucleated RBC Total Counted Neutrophils % (Manual) Lymphocytes % (Manual) Monocytes % (Manual) Metamyelocytes % Nucleated RBC % Abs Lymphs (Manual) Abs Monocytes (Manual) Nucleated RBCs Platelet Estimate % Immature Plt Fraction Sodium Potassium Chloride Carbon Dioxide BUN Creatinine Estim Creat Clear Calc Estimated GFR Glucose Uric Acid Calcium Total Bilirubin AST ALT Alkaline Phosphatase Total Protein Albumin RPR Blood Type O Positive Antibody Screen Negative Crossmatch See Detail OB - PN A/P Plan day: 1 Plan: routine care Comments: patient doing well this AM will plan to D/C velez once ambulating advance diet as tolerated last H/H , received pRBC transfusion H/H will be drawn at 0830 s/p transfusion continue routine PP care will consider early d/c pending COVID-19 test and H/H results Time Spent With Patient Time: Total time spent is greater than 50% in coordination of care (as documented) at patient's floor/unit and/or counseling patient: Time with patient: less than 15 minutes Review of Systems Constitutional: Constitutional: Reports no additional constitutional complaints Cardiovascular: Cardiovascular: Reports no additional cardiovascular complaints Respiratory: Respiratory: Reports no additional respiratory complaints Gastrointestinal: Gastrointestinal: Reports no additional gastroin
--- NOTE | 2019-12-02 07:42 | WPDANLDPN2 ---
Anes-Prog Note L&D Date/Time: 12/02/19 07:42 Comfortable throughout: section Neuraxial method: spinal Epidural/Spinal procedure site: clean & non-tender Neuro status: Neuro function grossly intact. Cardiovascular status: normal Respiratory status: normal Airway patency: baseline Mental status: baseline Post-Op hydration status: normal Vital Signs: Last Vital Signs Temp 37.1 C 12/02/19 05:30 Pulse 68 12/02/19 05:30 Resp 16 12/02/19 05:30 BP 154/105 H 12/02/19 05:30 Pulse Ox 98 12/02/19 05:30 I/O: Intake & Output 12/01/19 12/01/19 12/02/19 15:59 23:59 07:59 Intake Total 390 1047 Output Total 1293 402 Balance -903 645 Post-procedural complaints: none Patient feedback: Patient satisfied with anesthetic care.
--- NOTE | 2019-12-02 07:43 | WPDANLDNPN2 ---
Anes-Prog Note L&D-Neuraxial Date/Time: 12/02/19 07:43 Neuraxial medications: intrathecal PF morphine Opiod-related complaints: none Patient feedback: Patient satisfied with post-operative pain management.
[2019-12-02] MEDS: POLYSACCHARIDE IRON COMPLEX 150 MG CAPSULE PO ×2 (08:16→16:38)
[2019-12-02] MEDS: MULTIVIT/MIN/PREN/FOL AC/IRON TABLET 1 TAB PO (08:16)
[2019-12-02] MEDS: KCL 20 MEQ/D5/0.45% SOD CHL 1,000 ML 125 ML IV CONT (09:15)
[2019-12-02 09:17] LABS: Hematocrit 29.3 % (37.0-47.0); Hemoglobin 10.1 g/dL (12.0-15.0); Mean Corpuscular HGB Conc 34.5 g/dl (32-36); Mean Corpuscular Hemoglobin 29.9 pg (26-34); Mean Corpuscular Volume 86.7 fl (80-100); Platelet Count Result 86 k/mm3 (150-375); Red Blood Count 3.38 M/mm3 (4.2-5.4); Red Cell Distribution Width 14.9 % (11.5-14.5); White Blood Count 30.7 K/mm3 (4.5-10.0)
[2019-12-02 09:32] LABS: Alanine Aminotransferase 16 U/L (4-35); Albumin Level 2.2 g/dL (3.5-5.1); Alkaline Phosphatase 121 U/L (38-126); Aspartate Amino Transferase 56 U/L (14-36); Bilirubin,Total 0.6 mg/dL (0.2-1.3); Blood Urea Nitrogen 21 mg/dL (7-17); Carbon Dioxide 22 mmol/L (22-30); Chloride 102 mmol/L (98-107); Estimated CRCL calculation 55 ml/min; Estimated Glomerular Filt Rate 52; Glucose 79 mg/dL (65-105); Potassium 4.5 mmol/L (3.4-5.0); Sodium 127 mmol/L (137-145)
[2019-12-02 14:15] LABS: SARS-CoV-2 RNA PCR Negative
--- NOTE | 2019-12-02 15:50 | PC.NURSE ---
Consult with pt., to initiate pumping due to transfer. Mother has her own pump she wishes to use. Instructions given on breast pump care and usage, pumping schedule, nipple care, and collection and storage of breast milk. Encouraged [id number], breast massage and manual expression to stimulate supply. Pumping log provided and reviewed. Assessed patient for correct flange size, placement and draw. Patient verbalizes and demonstrates understanding of instructions. Advised to call out for RN if she has EBM to collect.
[2019-12-02] MEDS: ESCITALOPRAM OXALATE 10 MG TABLET 20 MG PO (19:03)
[2019-12-02] MEDS: AMITRIPTYLINE HCL 10 MG TABLET PO (19:03)
[2019-12-03 04:39] VITALS: BP 130/90; PULSE 89; RESP 16; TEMP 36.9; O2SAT 100
[2019-12-03 05:24] LABS: Hematocrit 23.7 % (37.0-47.0); Mean Corpuscular HGB Conc 33.8 g/dl (32-36); Mean Corpuscular Hemoglobin 29.4 pg (26-34); Mean Corpuscular Volume 87.1 fl (80-100); Mean Platelet Volume 12.9 fl (7.4-10.4); Platelet Count Result 84 k/mm3 (150-375); Red Blood Count 2.72 M/mm3 (4.2-5.4); Red Cell Distribution Width 15.8 % (11.5-14.5)
[2019-12-03 05:37] LABS: White Blood Count 21.9 K/mm3 (4.5-10.0)
[2019-12-03 08:05] VITALS: BP 111/71; PULSE 82; RESP 18; TEMP 37.2; O2SAT 98
[2019-12-03] MEDS: POLYSACCHARIDE IRON COMPLEX 150 MG CAPSULE PO ×2 (09:05→15:24)
[2019-12-03] MEDS: MULTIVIT/MIN/PREN/FOL AC/IRON TABLET 1 TAB PO (09:05)
[2019-12-03] MEDS: NALBUPHINE HCL 10 MG/ML AMPUL 2 MG IV PUSH ×2 (09:05→15:27)
--- NOTE | 2019-12-03 09:24 | PM.OBPNVD ---
OB - PN: Subj Subjective Date/time seen: 12/03/19 09:24 Narrative: Pain OK. Tolerating diet. Voiding well. Baby on room air. OB - PN: Obj Data Labs CBC & Chem 7: 12/03/19 04:15 12/02/19 09:02 Labs: Laboratory Results - last 24 hr 12/01/19 12/02/19 12/03/19 18:08 09:02 04:15 WBC 21.9 H RBC 2.72 L Hgb 8.0 L Hct 23.7 L MCV 87.1 MCH 29.4 MCHC 33.8 RDW 15.8 H Plt Count 84 L MPV 12.9 H Sodium 127 L Potassium 4.5 Chloride 102 Carbon Dioxide 22 BUN 21 H Creatinine 1.20 H Estim Creat Clear Calc 55 Estimated GFR 52 L Glucose 79 Calcium 7.0 L Total Bilirubin 0.6 AST 56 H ALT 16 Alkaline Phosphatase 121 Total Protein 4.0 L Albumin 2.2 L SARS-CoV-2 RNA (RT-PCR) Negative OB - PN A/P Plan Comments: A: POD#2, doing well. P: Routine care. Exam Narrative: Exam Narrative: AVSS I/O OK ABD soft, nontender, fundus firm. Incision c/d/i. EXT nontender
[2019-12-03 11:05] VITALS: BP 114/77; PULSE 80; RESP 18; TEMP 37.1; O2SAT 95
[2019-12-03 15:27] VITALS: BP 142/87; PULSE 82; RESP 18; TEMP 36.6; O2SAT 100
[2019-12-03 18:42] VITALS: BP 145/91; PULSE 82; RESP 16; TEMP 36.4; O2SAT 100
[2019-12-03] MEDS: TETANUS,DIPHTHERIA,AC PERTUSSIS ADULT (0.5 ML) BOOSTRIX IM (19:43)
[2019-12-03] MEDS: AMITRIPTYLINE HCL 10 MG TABLET PO (19:43)
[2019-12-03] MEDS: ESCITALOPRAM OXALATE 10 MG TABLET 20 MG PO (19:43)
[2019-12-04 00:29] VITALS: BP 126/90; PULSE 78; RESP 16; TEMP 37; O2SAT 97
[2019-12-04] MEDS: NALBUPHINE HCL 10 MG/ML AMPUL 2 MG IV PUSH (01:11)
[2019-12-04 04:32] VITALS: BP 146/88; PULSE 107; RESP 16; TEMP 36.6; O2SAT 100
[2019-12-04 05:31] LABS: Basophils Percent Auto 0.2 % (0.2-1.2); Eosinophils Absolute Auto 0.2 K/mm3 (0-0.3); Eosinophils Percent Auto 0.9 % (0-4.4); Hemoglobin 8.2 g/dL (12.0-15.0); Immature Granulocyte Absolute 0.51 K/mm3 (0.00-0.031); Immature Granulocyte Percent A 2.7 % (0-0.5); Lymphocytes Percent Auto 19.5 % (18.3-44.2); Mean Corpuscular HGB Conc 32.8 g/dl (32-36); Mean Corpuscular Hemoglobin 29.5 pg (26-34); Mean Corpuscular Volume 89.9 fl (80-100); Mean Platelet Volume 11.2 fl (7.4-10.4); Monocytes Absolute Auto 1.4 K/mm3 (0.1-0.6); Monocytes Percent Auto 7.3 % (2.6-8.5); Neutrophils Absolute Auto 13.1 K/mm3 (1.3-6.7); Neutrophils Percent Auto 69.4 % (45.5-73.1); Nucleated Red Blood Cells Absolute Auto 0.1 K/mm3 (0.0-0.012); Nucleated Red Blood Cells Perc 0.5 % (0.0-0.2); Platelet Count Result 124 k/mm3 (150-375); Red Blood Count 2.78 M/mm3 (4.2-5.4); Red Cell Distribution Width 15.7 % (11.5-14.5); White Blood Count 18.9 K/mm3 (4.5-10.0)
[2019-12-04 05:57] LABS: Alanine Aminotransferase 18 U/L (4-35); Albumin Level 2.6 g/dL (3.5-5.1); Alkaline Phosphatase 133 U/L (38-126); Aspartate Amino Transferase 39 U/L (14-36); Bilirubin,Total 0.1 mg/dL (0.2-1.3); Blood Urea Nitrogen 15 mg/dL (7-17); Calcium 7.6 mg/dL (8.4-10.2); Carbon Dioxide 26 mmol/L (22-30); Chloride 107 mmol/L (98-107); Estimated CRCL calculation 66 ml/min; Estimated Glomerular Filt Rate > 60; Glucose 71 mg/dL (65-105); Potassium 4.4 mmol/L (3.4-5.0); Sodium 135 mmol/L (137-145)
--- NOTE | 2019-12-04 07:00 | PC.NURSE ---
PT introductions made and plan of care discussed per post op c section, pain management, PIH symptoms, breast pumping, daily care activities and plan for a pass to [facility]. PT verbalized understanding of such care.
[2019-12-04 09:00] VITALS: BP 148/97; PULSE 92; RESP 18; TEMP 37.2; O2SAT 100
[2019-12-04 09:15] VITALS: PULSE 92; RESP 18; O2SAT 100
[2019-12-04] MEDS: DOCUSATE SODIUM 100 MG CAPSULE (09:15)
[2019-12-04] MEDS: MULTIVIT/MIN/PREN/FOL AC/IRON TABLET 1 TAB PO (09:18)
[2019-12-04] MEDS: SIMETHICONE 80 MG TAB.CHEW PO ×2 (09:18→12:44)
[2019-12-04] MEDS: POLYSACCHARIDE IRON COMPLEX 150 MG CAPSULE PO (09:18)
--- NOTE | 2019-12-04 09:30 | PC.NURSE ---
Mother continues to pump without difficulties or discomfort. Mother is now pumping 5-15mls per session for FOB to take to [facility]. Reviewed instructions given on breast pump care and usage, pumping schedule, nipple care, and collection and storage of breast milk. Encouraged [id number] as is available, breast massage and manual expression to stimulate supply. Patient verbalizes and demonstrates understanding of instructions. Reviewed regular medications mother is taking. Information provided per Maria E. Reviewed community resources on the [employer] website and in the Mom/Baby guide. Information on outpatient services provided. Mother has no further questions at this time.
[2019-12-04 12:15] VITALS: BP 135/89; PULSE 88; RESP 18; TEMP 37.1; O2SAT 99
[2019-12-04] MEDS: IBUPROFEN 600 MG TABLET PO (12:45)
--- NOTE | 2019-12-04 12:51 | PM.OBPNVD ---
OB - PN: Subj Subjective Date/time seen: 12/04/19 12:51 Narrative: Pain OK. itching much better. Tolerating diet. She thinks she would like to go home. OB - PN: Obj Data Labs CBC & Chem 7: 12/04/19 05:16 12/04/19 05:16 Labs: Laboratory Results - last 24 hr 12/04/19 12/04/19 05:16 05:16 WBC 18.9 H RBC 2.78 L Hgb 8.2 L Hct 25.0 L MCV 89.9 MCH 29.5 MCHC 32.8 RDW 15.7 H Plt Count 124 L MPV 11.2 H Immature Gran % (Auto) 2.7 H Neut % (Auto) 69.4 Lymph % (Auto) 19.5 [place] % (Auto) 7.3 Eos % (Auto) 0.9 Baso % (Auto) 0.2 Lymph # (Auto) 3.70 H [place] # (Auto) 1.4 H Eos # (Auto) 0.2 Baso # (Auto) 0.0 Abs Immat Gran (auto) 0.51 H Absolute Neuts (auto) 13.1 H Absolute Nucleated RBC 0.1 H Nucleated RBC % 0.5 H Sodium 135 L Potassium 4.4 Chloride 107 Carbon Dioxide 26 BUN 15 D Creatinine 1.00 Estim Creat Clear Calc 66 Estimated GFR > 60 Glucose 71 Calcium 7.6 L Total Bilirubin 0.1 L AST 39 H ALT 18 Alkaline Phosphatase 133 H Total Protein 5.0 L Albumin 2.6 L OB - PN A/P Plan Comments: A: POD#3, doing well. Preeclampsia is resolving. P: Home to f/u bp check tomorrow. Exam Narrative: Exam Narrative: AVSS ABD soft, nontender, fundus firm. Incision c/d/i. EXT nontender
--- NOTE | 2019-12-04 15:15 | PC.NURSE ---
PT received discharge instructions per protocol and verbalized understanding of such instructions.
--- NOTE | 2019-12-04 15:46 | PC.NURSE ---
PT discharged to home via wheelchair accompanied by spouse and taken to waiting car. Followup appts confirmed.
[2019-12-06 10:52] VITALS: BP 173/108; PULSE 72; RESP 20; TEMP 37; O2SAT 100
== END 2019-12-04 15:46 | disposition home or self-care (01) | DRG 788 ==
LOC: ANHLDR 19:54 → ANHOB2 23:08
PROVIDERS: Student in an Organized Health Care Education/Training Program; Admitting Provider Obstetrics & Gynecology; Visit Provider Obstetrics & Gynecology
PROC: 10D00Z1 Extraction of Products of Conception, Low, Open Approach (ICD-10-PCS; CPT 59514; principal; 2019-12-01 18:45)
DX: O14.94 Unspecified pre-eclampsia, complicating childbirth (principal); Z37.0 Single live birth; Z3A.35 35 weeks gestation of pregnancy; O44.13 Complete placenta previa with hemorrhage, third trimester; O90.81 Anemia of the puerperium; D50.0 Iron deficiency anemia secondary to blood loss (chronic); O99.62 Diseases of the digestive system complicating childbirth; K58.9 Irritable bowel syndrome, unspecified; O99.344 Other mental disorders complicating childbirth; F32.9 Major depressive disorder, single episode, unspecified; O99.214 Obesity complicating childbirth; E66.9 Obesity, unspecified; O99.89 Other specified diseases and conditions complicating pregnancy, childbirth and the puerperium; G43.909 Migraine, unspecified, not intractable, without status migrainosus
CPT/HCPCS: 36415; 36430; 59025; 76815; 76819; 80053; 81001; 81050; 82575; 84156; 84550; 85014; 85018; 85025; 85027; 85055; 86592; 86850; 86900; 86901; 86920; 87635; 88307; 90715; 96372; 96374; A9270; G0378; G0379; J0131; J0702; J1200; J1885; J2270; J2274; J2300; J2405; J2590; J3105; J3475; J3480; J7030; J7120; P9016; U0003

== ENCOUNTER 2020-05-09 10:25 | Observation (INO) | payer BC, SELFPAY ==
[2020-05-09] VITALS (17 sets, daily range): BP systolic 98–140; BP diastolic 64–95; PULSE 80–130; RESP 14–27; TEMP 36.3–37.1; O2SAT 96–100; BMI 28.5
--- NOTE | ~2020-05-09 | CT_ITS ---
EXAMINATION: CT BRAIN W/O DATE: 05/09/2020 11:31 INDICATION: Seizures TECHNIQUE: Computed tomography (CT) of the head was performed without intravenous contrast. The dose- length product was 605.33 mGy-cm. The mA was adjusted according to patient size. Iterative reconstruc tion technique was employed. COMPARISON: CT dated 04/29/2006 FINDINGS: Normal brain parenchymal volume for age. Normal juan-white differentiation. No acute intrac ranial hemorrhage, infarction, mass or mass effect. No ventriculomegaly or midline shift. Midline sagittal images demonstrate a normal corpus callosum, c raniovertebral junction and sella turcica. Basilar cisterns are patent. Paranasal sinuses and mastoids are pneumatized. No depressed skull fractures. IMPRESSION: 1. No acute intracranial abnormality. Reviewed, dictated and finalized at location A.
--- NOTE | ~2020-05-09 | MR_ITS ---
EXAMINATION: MR brain/brain stem wo/w con DATE: 05/10/2020 10:00 INDICATION: Seizure. TECHNIQUE: Magnetic resonance imaging (MRI) of the brain and brainstem was performed without and with 13 mL MultiHance intravenous contrast. Sequences included sagittal and axial T1-weighted FSE, axial diffusion-weighted FS EPI, axial T2*-weighted GRE, axial T2-weighted FLAIR Propeller, axial T2-weight ed Propeller, coronal T2-weighted FLAIR, and coronal T1-weighted 3D FSPGR. Postcontrast axial and cor onal T1-weighted FSE was obtained. Apparent diffusion coefficient (ADC) maps were created. COMPARISON: Brain MRI 02/20/2018, head CT 05/09/2020 FINDINGS: The hippocampi are normal and symmetric. There are areas of nonspecific increased T2-weight ed signal intensity in the cerebral white matter, which is within normal limits for the patient's age . There is no intracranial hemorrhage, acute infarction, or abnormal intracranial mass lesion. The ve ntricles are normal in size. There is mild mucosal thickening in the paranasal sinuses. The orbits ar e normal. The mastoid air cells are normal. IMPRESSION: 1. Normal aging brain. Reviewed, dictated and finalized at location A. IMPRESSION: 1. Normal aging brain.
--- NOTE | 2020-05-09 10:34 | ECG_ITS ---
Measurements Intervals [place] Rate: 127 P: 19 OR: 112 QRS: -21 QRSD: 96 T: 11 QT: 335 QTc: 488 Interpretive Statements SINUS TACHYCARDIA WITH SHORT OR INTERVAL INCOMPLETE RIGHT BUNDLE BRANCH BLOCK LOW QRS VOLTAGE IN PRECORDIAL LEADS BORDERLINE T WAVE ABNORMALITY- DIFFUSE LEADS BASELINE ARTIFACT- I, III, AVL ABNORMAL ECG Electronically Signed On 05-09-2020 11:48:38 CDT by Jesus Klein D.O.
[2020-05-09 11:14] LABS: Basophils Absolute Auto 0.1 K/mm3 (0.0-0.1); Basophils Percent Auto 1.3 % (0.2-1.2); Eosinophils Absolute Auto 0.3 K/mm3 (0-0.3); Hematocrit 35.4 % (37.0-47.0); Hemoglobin 12.3 g/dL (12.0-15.0); Immature Granulocyte Absolute 0.05 K/mm3 (0.00-0.031); Immature Granulocyte Percent A 0.7 % (0-0.5); Lymphocytes Absolute Auto 1.28 K/mm3 (0.9-3.2); Lymphocytes Percent Auto 18.2 % (18.3-44.2); Mean Corpuscular HGB Conc 34.7 g/dl (32-36); Mean Corpuscular Hemoglobin 31.7 pg (26-34); Mean Corpuscular Volume 91.2 fl (80-100); Mean Platelet Volume 9.1 fl (7.4-10.4); Monocytes Absolute Auto 0.6 K/mm3 (0.1-0.6); Monocytes Percent Auto 7.8 % (2.6-8.5); Neutrophils Absolute Auto 4.8 K/mm3 (1.3-6.7); Platelet Count Result 283 k/mm3 (150-375); Red Blood Count 3.88 M/mm3 (4.2-5.4); Red Cell Distribution Width 12.2 % (11.5-14.5)
[2020-05-09 11:27] LABS: Ethanol < 10 mg/dL (<10)
[2020-05-09 11:33] LABS: Alanine Aminotransferase 21 U/L (4-35); Albumin Level 4.4 g/dL (3.5-5.1); Alkaline Phosphatase 127 U/L (38-126); Anion Gap 14 mmol/L (8-16); Aspartate Amino Transferase 25 U/L (14-36); Bilirubin,Total 0.4 mg/dL (0.2-1.3); Blood Urea Nitrogen 14 mg/dL (7-17); Calcium 9.4 mg/dL (8.4-10.2); Carbon Dioxide 22 mmol/L (22-30); Chloride 105 mmol/L (98-107); Estimated Glomerular Filt Rate 52; Glucose 112 mg/dL (65-105); Potassium 4.4 mmol/L (3.4-5.0); Sodium 141 mmol/L (137-145)
[2020-05-09 11:51] LABS: Add Urine Microscopic? YES; Appearance Urine Clear (Clear); Bilirubin Urine Negative (Negative); Blood Urine Negative (Negative); Color Urine Yellow (Yellow); Glucose Urine UA Negative (Negative); Ketones Urine Negative (Negative); Leukocyte Esterase Ur Trace LEU/UL (Negative); Mucus Urine Rare /lpf; Nitrate Urine Negative (Negative); Protein Urine 1+ mg/dL (Negative); RBC Urine 0-2 /hpf (0-2); Specific Grav Ur 1.014 (1.001-1.035); Squamous Epithelial Cell Urine Occasional /hpf (Few); Urobilinogen Urine Negative mg/dL (<2.0); WBC Urine 0-3 /hpf
--- NOTE | 2020-05-09 13:10 | ED.SEIZURE ---
HPI - Seizure General Chief Complaint: Seizure Stated Complaint: seizure Time Seen by Provider: 05/09/20 10:36 Source: patient Mode of arrival: EMS Limitations: no limitations History of Present Illness HPI Narrative: 34-year-old with a history of depression was brought in by ambulance from home with complaints of a possible seizure-like activity. As per the EMS patient was found on the floor with active convulsions which lasted about 30 seconds. However patient does not remember what happened prior to the event. No history of bladder or bowel incontinence. Patient states that she had similar episode 3 months ago and was not put on any medication. Patient also states that they increased her dosage of her antidepressant recently. MD complaint: seizure Duration of episode: 1 -: second(s) (30) Witnessed: Yes - by Other (By ) Trauma: No Seizure History: Yes Place: home Possible Precipitating Event: none Related Data Allergies Allergy/AdvReac Type Severity Reaction Status Date / Time sulfamethoxazole Allergy Unknown Hives Verified 05/09/20 10:36 trimethoprim Allergy Unknown Seizure Verified 05/09/20 10:36 yellow dye Allergy Unknown Swelling Verified 05/09/20 10:36 of Lip/Tongue/Throat Review of Systems Review of Systems: All systems reviewed & are unremarkable except as noted in HPI and below Constitutional: Constitutional: Reports no additional constitutional complaints Eyes: Eyes: Reports no additional eye complaints ENT: Reports system reviewed and no additional complaints, except as documented Cardiovascular: Cardiovascular: Reports no additional cardiovascular complaints Respiratory: Respiratory: Reports no additional respiratory complaints Gastrointestinal: Gastrointestinal: Reports no additional gastrointestinal complaints Musculoskeletal: Musculoskeletal: Reports no additional musculoskeletal complaints Integumentary/Breasts: Skin/Breast: Reports system reviewed and no additional complaints, except as docu PMFSH Past Medical History Medical History (Updated 05/09/20 @ 13:15 by Familia Guerrier MD) Depression affecting Irritable bowel syndrome affecting Migraine Social History Social History Smoking status: Former smoker Substance use: never Gender identity (if verbalized by the patient): Female Spiritual care concerns: No Exam Narrative: Exam Narrative: GENERAL: Well-appearing, well-nourished, and in no acute distress. HEAD: Normocephalic, atraumatic. EYES: PERRLA and EOMI. ENT: Nares clear, no rhinorrhea or epistaxis. Mucous membranes moist. NECK: Supple. CHEST: Clear to auscultation. No respiratory distress. HEART: Regular rate and rhythm. No murmur heard. Normal peripheral pulses. ABDOMEN: Soft, nontender, nondistended, normal active bowel sounds. EXTREMITIES: Normal range of motion. No edema. SKIN: Warm, dry, no rash. NEURO: No focal deficits. Alert and oriented x3. PSYCH: Normal mood and affect. Course Course Emergency Course: Patient while here in the ER waiting for the lab to inform the nurse that she had like taste in the mouth. Discussed it with Dr. Sebastian who recommended to admit the patient for seizure work-up. Discussed labs, CT and EKG findings with patient and her . She agreed for admission. Vital Signs Vital signs: Vital Signs Temperature 36.4 C 05/09/20 10:25 Pulse Rate 130 H 05/09/20 10:25 Respiratory Rate 18 05/09/20 10:25 Blood Pressure 132/87 05/09/20 10:25 Pulse Oximetry 97 05/09/20 10:25 Temperature 36.4 C 05/09/20 10:25 Pulse Rate 92 05/09/20 13:13 Respiratory Rate 17 05/09/20 13:13 Blood Pressure 118/89 05/09/20 13:13 Pulse Oximetry 100 05/09/20 13:13 MDM - Seizure Differential Diagnosis Differential diagnosis: Likely intractable seizure disorder, focal seizure, generalized seizure and new onset seizure Lab Data
[2020-05-09] MEDS: levETIRAcetam 500MG/NACL 100ML 500 MG/100 ML BAG 400 MG IVPB (13:13)
[2020-05-09] MEDS: ACETAMINOPHEN 325 MG TABLET 650 MG PO (13:35)
--- NOTE | 2020-05-09 14:59 | ADMGEN ---
This patient, Nadege Thompson, was admitted to Medical Room 254-01. Patient/family oriented to hospital policies and general routines including ID bracelet, bed and alarms, visiting hours, pain management, procedures, bathroom and other care routines, personal items, smoking policy, room service/diet, and visiting hours. Valuables list has been completed. Information on how to activate the Rapid Response Team has been discussed. Patient/Family are encouraged to report perceived risks to care and to ask questions if they do not understand what they are told or what they should do.
--- NOTE | 2020-05-09 18:47 | PM.IMHP ---
H&P: HPI History of Present Illness Date/Time: 05/09/20 18:47 Chief complaint: seizure Narrative: Nadege Thompson is a 34 year old female Who has had a past history of having a seizure but said it was drug related. The patient has been on amitriptyline for many years for her irritable bowel or colitis and is appeared to be doing well but recently the patient had her amitriptyline increased and her Wellbutrin. The patient has depression and her child is 5-month-old. She also has severe anxiety as well. She occasionally taking it. The patient stated that she just felt very bizarre when her was walking out today. She has been having some ringing in her ears since her medications have been increased and she had a sulfur taste in her mouth. Patient stated she was on the floor in her with this her having a seizure for about 30 seconds. Her baby was in the swing when this occurred. The patient does not remember what she did this morning when she woke up. She was brought in by ambulance today for possible seizure-like activity. Adverse reactions of amitriptyline is seizures and tremors ataxia. Patient was not incontinent of bowel or bladder. She said that she had similar episode 3 months ago but was not on any medication. Patient is awake and conversing at her baseline. She has not had any fevers or chills. Her heart rate was initially 130 but then came down to 92. Neurology has been consulted. The patient is still breast feeding. Creatinine was 120. Sodium was normal. Glucose 112. Patient denies any shortness of breath or cough. Patient was started on Keppra and neurology has been consulted. Patient was admitted for observation to [facility] floor. CT of the brain was negative. Date of service is 05/09/2020 Review of Systems Review of Systems: All systems reviewed & are unremarkable except as noted in HPI and below Constitutional: Constitutional: Reports as per HPI and Reports no additional constitutional complaints Eyes: Eyes: Reports as per HPI and Reports no additional eye complaints ENT: Reports system reviewed and no additional complaints, except as documented and Reports Normal hearing present Cardiovascular: Cardiovascular: Reports no additional cardiovascular complaints Respiratory: Respiratory: Reports no additional respiratory complaints and Reports no additional respiratory complaints Gastrointestinal: Gastrointestinal: Reports as per HPI and Reports no additional gastrointestinal complaints Musculoskeletal: Musculoskeletal: Reports no additional musculoskeletal complaints Integumentary/Breasts: Skin/Breast: Reports system reviewed and no additional complaints, except as docu and Reports as per HPI Neurologic: Reports system reviewed and no additional complaints, except as documented, Reports as per HPI and Reports Normal hearing present Psychiatric: Psychiatric: Reports no additional psychiatric complaints and Reports as per HPI Endocrine: Endocrine: Reports no additional endocrine complaints Hematologic/Lymphatic: Hematologic/Lymphatic: Reports no additional hematologic/lymphatic complaints Allergic/Immunologic: Allergic/Immunologic: Reports no additional allergic/immunologic complaints [facility] Past Medical History Medical History (Updated 05/09/20 @ 18:59 by Lizette Mckenna NP) Anxiety Depression affecting Hypothyroidism no longer on any medication. Irritable bowel Irritable bowel syndrome affecting Migraine depression Surgical History Surgical History (Updated 05/09/20 @ 18:53 by Lizette Mckenna NP) History of section, classical Family History Family History Mother Hypothyroid Social History Social History (Updated 05/09/20 @ 18:55 by Lizette Mckenna NP) Social History: the patient is and has 1 child. 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
[2020-05-09] MEDS: levETIRAcetam 250 MG TABLET 500 MG PO (22:21)
[2020-05-10] VITALS (9 sets, daily range): BP systolic 97–110; BP diastolic 60–67; PULSE 83–111; RESP 16–20; TEMP 36–36.6; O2SAT 98–100
[2020-05-10 05:48] LABS: Basophils Absolute Auto 0.1 K/mm3 (0.0-0.1); Basophils Percent Auto 1.1 % (0.2-1.2); Eosinophils Absolute Auto 0.4 K/mm3 (0-0.3); Eosinophils Percent Auto 5.1 % (0-4.4); Hematocrit 35.6 % (37.0-47.0); Hemoglobin 12.2 g/dL (12.0-15.0); Immature Granulocyte Absolute 0.02 K/mm3 (0.00-0.031); Immature Granulocyte Percent A 0.3 % (0-0.5); Lymphocytes Absolute Auto 1.79 K/mm3 (0.9-3.2); Lymphocytes Percent Auto 24.5 % (18.3-44.2); Mean Corpuscular HGB Conc 34.3 g/dl (32-36); Mean Corpuscular Hemoglobin 31.3 pg (26-34); Mean Corpuscular Volume 91.3 fl (80-100); Mean Platelet Volume 9.1 fl (7.4-10.4); Monocytes Absolute Auto 0.8 K/mm3 (0.1-0.6); Monocytes Percent Auto 10.7 % (2.6-8.5); Neutrophils Absolute Auto 4.3 K/mm3 (1.3-6.7); Neutrophils Percent Auto 58.3 % (45.5-73.1); Platelet Count Result 302 k/mm3 (150-375); Red Cell Distribution Width 12.1 % (11.5-14.5); White Blood Count 7.3 K/mm3 (4.5-10.0)
[2020-05-10 05:54] LABS: Alanine Aminotransferase 18 U/L (4-35); Alkaline Phosphatase 107 U/L (38-126); Anion Gap 7 mmol/L (8-16); Aspartate Amino Transferase 22 U/L (14-36); Bilirubin,Total 0.5 mg/dL (0.2-1.3); Blood Urea Nitrogen 16 mg/dL (7-17); Calcium 9.1 mg/dL (8.4-10.2); Carbon Dioxide 28 mmol/L (22-30); Chloride 103 mmol/L (98-107); Estimated CRCL calculation 55 ml/min; Estimated Glomerular Filt Rate 58; Glucose 89 mg/dL (65-105); Magnesium 2.2 mg/dL (1.6-2.3); Potassium 4.3 mmol/L (3.4-5.0); Sodium 138 mmol/L (137-145)
[2020-05-10] MEDS: ACETAMINOPHEN 325 MG TABLET 650 MG PO ×3 (07:40→20:49)
[2020-05-10 08:03] LABS: Free T4 Free Thyroxine Reflex 0.82 ng/dL (0.78-2.19)
[2020-05-10] MEDS: levETIRAcetam 250 MG TABLET 500 MG PO ×2 (08:35→20:50)
[2020-05-10] MEDS: PANTOPRAZOLE 40 MG TABLET PO (08:35)
[2020-05-10 09:06] LABS: Total Triiodothyronine (T3) 1.07 NG/ML (0.97-1.69)
--- NOTE | 2020-05-10 09:09 | PM.IMPN ---
Progress Note: A&P Assessment and Plan (1) Epileptic seizure: Qualifiers: Epilepsy type: unspecified Intractability: intractable Status epilepticus: without status epilepticus Qualified Code(s): G40.919 - Epilepsy, unspecified, intractable, without status epilepticus Code(s): G40.909 - Epilepsy, unspecified, not intractable, without status epilepticus Status: Acute Assessment and Plan: This is her third seizure. Amitriptyline was recently increased and wellbutrin was also added and recently increased. Continue to hold both. EEG was non-focal, non-lateralizing, non-paroxysmal but did show excessive theta activity and she will need repeat EEG at a later date. MRI was unremarkable. Neurology is on board. Await further neurology input. She is on keppra now and needs to dump all breast milk for now. Discussed with Dr. Tian who recommends she pump and dump for now and he will see her tomorrow. It is likely that she will need to stop altogether. Appreciate neurology and POTATO INSPECTOR input. (2) depression: Code(s): O99.345 - Other mental disorders complicating the puerperium; F53.0 - depression Status: Chronic Assessment and Plan: Discussed with her psychiatrist, Gui Burnham. Wellbutrin is contraindicated due to seizure and will be discontinued. Gui recommends increasing fluoxetine to 40mg. The patient denies thoughts of harming herself or others. Continue to monitor closely. (3) Anxiety: Code(s): F41.9 - Anxiety disorder, unspecified Status: Chronic Assessment and Plan: Continue alprazolam as needed but she will need to dispose of her milk if she takes this. (4) Irritable bowel: Code(s): K58.9 - Irritable bowel syndrome without diarrhea Status: Chronic Assessment and Plan: She is established with GI has been on amitriptyline for 3 years. Symptoms worsened so this was recently increased within the past month. I discussed this with Dr. Paz. She may be able to resume this at a lower dose but the high dose is contraindicated due to her recent seizure. Will defer to neurology. It is on hold for now. She will need to follow-up with GI to discuss other options. (5) Migraine: Code(s): G43.909 - Migraine, unspecified, not intractable, without status migrainosus Status: Acute Assessment and Plan: Discussed with Dr. Tian and will try ketorolac since she is going to have to pump and dump. Time Spent With Patient Time with patient: 15 - 25 minutes Subjective Date/time seen: 05/10/20 09:09 Mrs. Thompson is a 34 y.o. female with PMH significant for post- depression, IBS, migraines, and who is seen in follow-up for seizures. She had one seizure in 2005 and an additional seizure in 2018 when she was having GI issues which she attributed to medications she was getting at that time. She reports that her found her on the ground convulsing yesterday morning. She urinated on herself during the episode and the right side of her tongue is sore. She had post-ictal confusion yesterday and could not recall things she had done that morning which has resolved today. Her only complaint at this time is a left sided headache. She has a hx of migraines. It is throbbing and she feels like it is turning into a migraine. She has no other associated symptoms. She denies lateralizing weakness, speech change, and vision change. She also reports tinnitus x1 week. Her amitriptyline was recently increased per GI due to GI discomfort and wellbutrin was initiated 04/15 and increased 1 week ago. She has not had any further seizures. She denies chest pain, shortness of breath, palpitations, nausea, vomiting, and abdominal pain. She denies dizziness and lightheadedness. Review of Systems Review of Systems: All systems reviewed & are unremarkable except as noted in HPI and below Exam Narrative: Exam Kevyn
--- NOTE | 2020-05-10 11:04 | WPDNEURCNPN ---
Assessment and Plan Assessment and plan (1) Irritable bowel: Code(s): K58.9 - Irritable bowel syndrome without diarrhea Status: Chronic (2) depression: Code(s): O99.345 - Other mental disorders complicating the puerperium; F53.0 - depression Status: Chronic (3) Anxiety: Code(s): F41.9 - Anxiety disorder, unspecified Status: Chronic (4) Epileptic seizure: Qualifiers: Epilepsy type: unspecified Intractability: intractable Status epilepticus: without status epilepticus Qualified Code(s): G40.919 - Epilepsy, unspecified, intractable, without status epilepticus Code(s): G40.909 - Epilepsy, unspecified, not intractable, without status epilepticus Status: Acute (5) Placenta previa: Code(s): O44.00 - Complete placenta previa NOS or without hemorrhage, unspecified trimester Status: Acute (6) Depression affecting : Code(s): O99.340 - Other mental disorders complicating , unspecified trimester; F32.9 - Major depressive disorder, single episode, unspecified Status: Chronic (7) Preeclampsia: Code(s): O14.90 - Unspecified pre-eclampsia, unspecified trimester Status: Acute (8) Irritable bowel syndrome affecting : Code(s): O99.619 - Diseases of the digestive system complicating , unspecified trimester; K58.9 - Irritable bowel syndrome without diarrhea Status: Acute (9) Vaginal bleeding in patient after first trimester with placenta previa: Code(s): O44.31 - Partial placenta previa with hemorrhage, first trimester Status: Acute Additional Plan WILL OBTAIN EEG Consult date: 05/10/20 Time Seen: 11:00 HPI: Nadege Thompson is a 34 year old femaleHAS BEEN ADMITTED TO THE HOSPITAL THROUGH THE EMERGENCY ROOM WHERE SHE WAS BROUGHT BY THE AMBULANCE WITH THE COMPLAINTS OF SEIZURE-LIKE ACTIVITY. SHE WAS REPORTEDLY FOUND ON THE FLOOR WITH ACTIVE CONVULSIONS LASTING FOR ABOUT 30SECONDS THOUGH SHE HAD NO RECALL WITHOUT ASSOCIATED INCONTINENCE OF BOWEL OR BLADDER AND WITH INFORMATION THAT SHE HAS HAD THE SIMILAR EPISODE 3 MONTHS AGO.PATIENT HAS BEEN ON AMITRIPTYLINE FOR SEVERAL YEARS FOR THE ONGOING DIAGNOSIS OF IRRITABLE BOWEL SYNDROME BUT RECENTLY HER AMITRIPTYLINE WAS INCREASED AND SHE WAS ADDED ON WELLBUTRIN SHE CARRIES THE DIAGNOSIS OF DEPRESSION WITH SEVERE ANXIETY. AT THIS PARTICULAR TIME SHE REPORTED THAT SHE FELT VERY BIZARRE RINGING ON IN HER EARS FUNNY TASTE IN HER MOUTH AND SHE WAS UNABLE TO RECALL WHEN SHE WOKE UP. Review of Systems Review of Systems: All systems reviewed & are unremarkable except as noted in HPI and below PMFSH Past Medical History Medical History (Updated 05/09/20 @ 18:59 by Lizette Mckenna NP) Anxiety Depression affecting Hypothyroidism no longer on any medication. Irritable bowel Irritable bowel syndrome affecting Migraine depression Surgical History Surgical History (Updated 05/09/20 @ 18:53 by Lizette Mckenna NP) History of section, classical Family History Family History Mother Hypothyroid Social History Social History (Updated 05/09/20 @ 18:55 by Lizette Mckenna NP) Social History: the patient is and has 1 child. 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 She is a full code and her is a durable power consumer attorney for healthcare. Patient denies any current tobacco use no marijuana alcohol or illicit drugs. She lives with her . Years smoked: 2 Smoking status: Former smoker Additional smoking assessment comments: Would smoke socially Alcohol intake: current Drinks per week: 1 Substance use: never Substance use type: does not use Gender identity (if verbalized by the patient): Female Spiritual care concerns: No Meds Home Medications and Allerg
--- NOTE | 2020-05-10 12:21 | WPDNEUROLOGY ---
Neurology EEG Report General Information Date of Study: 05/10/20 TEST eeg DIAGNOSIS seizures CONDITION OF RECORDING Awake drowsy and sleep EEG NUMBER [id number] CLINICAL HISTORY patient reportedly had a seizure yesterday was unable to recall the whole episode EEG DESCRIPTION basic resting occipital frequency consists of moderate amount of low to medium voltage 9 to 11 hertz per 2nd alpha admixed with low-voltage 15 to 21 hertz per 2nd beta. During drowsiness low-voltage beta activity seen diffusely admixed with waxing and waning posterior alpha rhythm. Bilateral symmetrical sleep activity is seen during sleep. Intermittent theta activity seen during brief wakefulness. Non paroxysmal. Nonfocal focal. Nonlateralizing. IMPRESSION Normal record during wakefulness drowsiness and sleep except that excessive amount of theta activity seen repeat EEG recommended at a later date
[2020-05-10] MEDS: ALPRAZolam (*CRX) 0.25 MG TABLET 0.5 MG PO (12:33)
[2020-05-10] MEDS: FLUoxetine HCL 20 MG CAPSULE 40 MG PO (12:34)
[2020-05-10] MEDS: KETOROLAC 30 MG/ML VIAL (*BKC) IV PUSH (17:36)
[2020-05-11] VITALS (7 sets, daily range): BP systolic 89–122; BP diastolic 53–73; PULSE 80–94; RESP 16–18; TEMP 36.1–36.6; O2SAT 98–100
[2020-05-11 06:01] LABS: Hematocrit 34.3 % (37.0-47.0); Hemoglobin 11.9 g/dL (12.0-15.0); Mean Corpuscular HGB Conc 34.7 g/dl (32-36); Mean Corpuscular Volume 92.2 fl (80-100); Mean Platelet Volume 9.2 fl (7.4-10.4); Platelet Count Result 283 k/mm3 (150-375); Red Blood Count 3.72 M/mm3 (4.2-5.4); Red Cell Distribution Width 11.9 % (11.5-14.5); White Blood Count 7.1 K/mm3 (4.5-10.0)
[2020-05-11 06:18] LABS: Anion Gap 10 mmol/L (8-16); Blood Urea Nitrogen 19 mg/dL (7-17); Calcium 9.1 mg/dL (8.4-10.2); Carbon Dioxide 24 mmol/L (22-30); Chloride 104 mmol/L (98-107); Estimated CRCL calculation 61 ml/min; Estimated Glomerular Filt Rate > 60; Glucose 92 mg/dL (65-105); Magnesium 2.1 mg/dL (1.6-2.3); Potassium 4.2 mmol/L (3.4-5.0); Sodium 138 mmol/L (137-145)
[2020-05-11] MEDS: ACETAMINOPHEN 325 MG TABLET 650 MG PO ×2 (07:38→13:18)
[2020-05-11] MEDS: levETIRAcetam 250 MG TABLET 500 MG PO (08:23)
[2020-05-11] MEDS: ALPRAZolam (*CRX) 0.25 MG TABLET 0.5 MG PO (08:23)
[2020-05-11] MEDS: PANTOPRAZOLE 40 MG TABLET PO (08:23)
[2020-05-11] MEDS: FLUoxetine HCL 20 MG CAPSULE 40 MG PO (08:23)
--- NOTE | 2020-05-11 12:40 | PM.IMHP ---
H&P: HPI History of Present Illness Date/Time: 05/12/20 23:50 Chief complaint: seizure Narrative: 34 y/o who had a delivery in November. Her daughter is doing well. She is pumping the breasts and feeding the baby breast milk, but says her supply has really dwindled recently. Her anxiety had worsened to the point that I recommended she see a psychiatrist. Her new psychiatrist added Wellbutrin to the fluoxetine 20 mg she was already taking. She also takes amitriptylene for IBS and uses Xanax intermittently. She had been taking Buspar, but is not taking it currently. She had a seizure for which she has been admitted to the hospital. I was consulted to help her sort out the issue of medications during . She mentions that she has had a couple seizures in the past, though she had never mentioned that to me previously, or to her psychiatrist. Review of Systems Review of Systems: All systems reviewed & are unremarkable except as noted in HPI and below PMFSH Past Medical History Medical History Anxiety Depression affecting Hypothyroidism no longer on any medication. Irritable bowel Irritable bowel syndrome affecting Migraine depression Surgical History Surgical History History of delivery Family History Family History Mother Hypothyroid Social History Social History Social History: the patient is and has 1 child. 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 She is a full code and her is a durable power city attorney for healthcare. Patient denies any current tobacco use no marijuana alcohol or illicit drugs. She lives with her . Years smoked: 2 Smoking status: Former smoker Additional smoking assessment comments: Would smoke socially Alcohol intake: current Drinks per week: 1 Substance use: never Substance use type: does not use Gender identity (if verbalized by the patient): Female Spiritual care concerns: No Meds Home Medications and Allergies Home Medications Medication Instructions Recorded Confirmed Type alprazolam 0.5 mg PO BID PRN 10/11/20 10/11/20 History omeprazole 20 mg PO DAILY 05/09/20 05/09/20 History fluoxetine 40 mg PO DAILY #30 tablet 05/11/20 Rx levetiracetam 500 mg PO Q12HR #60 tablet 05/11/20 Rx Allergies Allergy/AdvReac Type Severity Reaction Status Date / Time sulfamethoxazole Allergy Unknown Hives Verified 05/09/20 10:36 trimethoprim Allergy Unknown Seizure Verified 05/09/20 10:36 yellow dye Allergy Unknown Swelling Verified 05/09/20 10:36 of Lip/Tongue/Throat Exam Narrative: Exam Narrative: Well-developed, well-nourished female in no acute distress, resting comfortably in the hospital bed at the time of my interview. Assessment and Plan Assessment and plan (1) Mother currently breast-feeding: Code(s): Z39.1 - Encounter for care and examination of lactating mother Status: Acute (2) Epileptic seizure: Qualifiers: Epilepsy type: unspecified Intractability: intractable Status epilepticus: without status epilepticus Qualified Code(s): G40.919 - Epilepsy, unspecified, intractable, without status epilepticus Code(s): G40.909 - Epilepsy, unspecified, not intractable, without status epilepticus Status: Acute (3) Anxiety: Code(s): F41.9 - Anxiety disorder, unspecified Status: Chronic Additional Plan We had a long discussion totalling 20 minutes. Because her milk supply is dwindling, her baby is 5 months old, and she is requiring numerous medications now, she is inclined to stop breastfeeing. We reviewed benefits and risks of continued . She plans to stop and to f/u
[2020-05-11] MEDS: traMADol HCL (*CRX) 25 MG TABLET PO (15:30)
--- NOTE | 2020-05-11 15:40 | PM.DS ---
DS: Admitting Diagnosis Admitting Diagnosis Admitting Diagnosis: seizure DS: Discharge Diagnosis Discharge Diagnosis (1) Epileptic seizure: Qualifiers: Epilepsy type: unspecified Intractability: intractable Status epilepticus: without status epilepticus Qualified Code(s): G40.919 - Epilepsy, unspecified, intractable, without status epilepticus Code(s): G40.909 - Epilepsy, unspecified, not intractable, without status epilepticus Status: Acute Assessment and Plan: Patient had seizure like activity and was found on the floor with active convulsions lasting approximately 30 seconds at home on 05/09/20. This is her third seizure (another in 2005 and 2017). She recently had medication adjustments in which her amitriptyline was increased and wellbutrin was initiated. She stated she had been feeling somewhat dizzy and having tinnitus since initiating this medication. Both amitriptyline and wellbutrin were discontinued. She was seen in consultation by neurology. EEG was non-focal, non-lateralizing, non-paroxysmal but did show excessive theta activity and she will need repeat EEG at a later date. Neurology has recommended repeat in 2-3 months. MRI was unremarkable. She was initiated on Keppra 500 mg bid which she will continue and follow up with neurology. (2) depression: Code(s): O99.345 - Other mental disorders complicating the puerperium; F53.0 - depression Status: Chronic Assessment and Plan: She is established with psychiatry and sees a therapist. Previous provider discussed this patient's case with her psychiatrist, Gui Burnham. Wellbutrin is contraindicated due to seizure and was discontinued, therefore psychiatry recommended increasing fluoxetine to 40mg. The patient denied thoughts of harming herself or others. Her mood remained stable. She has an appointment arranged with her psychiatrist on 05/13/20. (3) Anxiety: Code(s): F41.9 - Anxiety disorder, unspecified Status: Chronic Assessment and Plan: Continue alprazolam as needed. No with ativan. Follow up with psychiatry. (4) Irritable bowel: Code(s): K58.9 - Irritable bowel syndrome without diarrhea Status: Chronic Assessment and Plan: She is established with GI and has been on amitriptyline for 3 years. Her symptoms had recently worsened and this was recently increased within the past month. This was discussed with neurology. At this time, the medication will be stopped. She is to monitor her symptoms, and if they return or worsen, she should follow up with GI as she may be able to resume medication at a lower dose. She will follow up with both GI and neurology. We discussed changes she could make at home including adding fiber and monitoring her diet/keeping a food log to monitor symptoms (5) Migraine: Code(s): G43.909 - Migraine, unspecified, not intractable, without status migrainosus Status: Acute Assessment and Plan: She had unilateral left-sided migraine that lasted 2 days. She reports she occasionally gets migraines, and had previously been on triptans. She received toradol with no improvement. Reports migraine improved with rest and dark room. She received one time dose of tramadol which resulted in resolution of migraine. She should follow up with PCP or neurology if she continues to have migraines. (6) Mother currently breast-feeding: Code(s): Z39.1 - Encounter for care and examination of lactating mother Status: Acute Assessment and Plan: Patient has 5 month old baby. She has been breast-feeding since , but recently began to wean her breast-feeding and supplement with formula. Upon initiation of Keppra, she was instructed to pump and dump as this can enter breastmilk. Dr. Tian, FOOTWEAR PRODUCTION MACHINE OPERATOR was consulted and discussed continuation of breast-feeding at length with the patient. At this time, the recommendation
== END 2020-05-11 15:50 | disposition home or self-care (01) ==
LOC: ANHED 13:24 → ANH2MED 13:57
PROVIDERS: Nurse Practitioner; Physician Assistant; Admitting Provider Family Medicine; Emergency Provider Family Medicine; PCP Physician Assistant; Visit Provider Physician Assistant
DX: G40.909 Epilepsy, unspecified, not intractable, without status epilepticus (principal); K58.9 Irritable bowel syndrome, unspecified; F41.9 Anxiety disorder, unspecified; O99.345 Other mental disorders complicating the puerperium; F53.0 Postpartum depression; G43.909 Migraine, unspecified, not intractable, without status migrainosus; Z23 Encounter for immunization
CPT/HCPCS: 36415; 70450; 70553; 80048; 80053; 80307; 81001; 82728; 83735; 84439; 84443; 84480; 85025; 85027; 90471; 90653; 93005; 95816; 96365; 96375; 99285; A9270; A9577; G0008; G0378; J1885; J1953

== ENCOUNTER 2020-08-24 02:38 | Outpatient (CLI) | payer BC, SELFPAY ==
[2020-08-24 18:13] LABS: SARS-CoV-2 RNA PCR Negative
== END 2020-08-24 02:39 | disposition home or self-care (01) ==
LOC: ANHCOVIDDT 02:39
PROVIDERS: Family Provider Internal Medicine; PCP Physician Assistant; Visit Provider Internal Medicine Critical Care Medicine
DX: R68.89 Other general symptoms and signs (principal); Z20.822 Contact with and (suspected) exposure to COVID-19
CPT/HCPCS: C9803; U0003; U0005

== ENCOUNTER → 2020-09-14 13:04 | Outpatient (CLI) | payer BC, SELFPAY ==
--- NOTE | ~2020-09-14 | XR_ITS ---
XR toe 5th LT min 2V DATE: 09/14/2020 13:21 INDICATION: Left fifth toe injury TECHNIQUE: 3 views COMPARISON: None FINDINGS: There is a linear oblique intra-articular fracture of the base of the proximal phalanx of t he fifth digit, without displacement or angulation. No other fracture. No dislocation. IMPRESSION: Nondisplaced linear oblique in particular fracture of the base of the proximal phalanx of the fifth toe Reviewed, dictated and finalized at location B. ERTY MANAGEMENT ASSISTANT IMPRESSION: Nondisplaced linear oblique in particular fracture of the base of t he proximal phalanx of the fifth toe
== END ==
PROVIDERS: PCP Physician Assistant; Visit Provider Physician Assistant
DX: S99.922A Unspecified injury of left foot, initial encounter (principal); X58.XXXA Exposure to other specified factors, initial encounter
CPT/HCPCS: 73660

== ENCOUNTER 2020-11-29 08:49 | Outpatient (CLI) | payer BC, SELFPAY ==
--- NOTE | 2020-12-10 15:39 | WPDHOMESLEEP ---
Sleep Study - Home Unattended Date of Study: 11/29/20 Ordering Provider: Carole Buckley MD Interpreting Provider: Carole Buckley MD Home Sleep Study Type: Apnea Link Air Height: 1.52 m Weight: 66.224 kg Body Mass Index: 28.5 Neck Circumference (inches): 11 [place]: 6 Reason for Sleep Study Long history of insomnia Sleep History Nadege Thompson is a 35 year old female with lifelong insomnia. Her life is busy with a 1 year old baby. She has longstanding anxiety. She does not keep regular hours. She does use an herbal supplement to help her get to sleep. She uses soft music to help her go to sleep however it is not on a timer so it runs throughout the night. She does take naps in the day. She has a baby monitor in the bedroom and it has a light on it as well as sound to monitor her baby. The light is visible to her during the night. she has had irregular sleep habits her entire life. In general it takes her for 1-2 hours to fall asleep. When she is in bed in the room is quiet she notes ringing in her ears. There is a family history of sleep difficulties with her mother having trouble falling asleep due to chronic back pain. This patient has used multiple medications including melatonin, Ambien, trazodone, as well as essential oils on her pillows at night. In the last month or so she has started snoring and her noticed that is now lower enough to be annoying to him. This is rather new problem. She does not awaken from sleep feeling short of breath and does not awaken at night with heartburn, belching or coughing. She constantly has trouble sleep with a cold. She does not wake up gasping for breath during the night. She does not have breathing problems at night observed by others. She does not sweat excessively at night or notices her heart pounding or beating irregularly night. She rarely falls asleep during the day, rarely involuntarily and she never falls asleep while driving. She does not fall asleep while exerting physical effort. She does not have loss of muscle tone was strong emotion. She rarely has daytime difficulties due to excessive sleepiness. She does not feel paralyzed on waking or falling asleep. She does not have vivid dreamlike scenes on waking or falling asleep. She does not feel afraid to go to sleep. She rarely has nightmares. She rarely remembers her dreams. She constantly has racing thoughts. She frequently feels sad or depressed. She constantly has anxiety. She occasionally has muscular tension. She frequently notices parts of her body jerking which she says is consistent with restless legs. She rarely kicks at night. She does not have crawling or aching feelings in her legs. She does not have any kind of leg pain at night. She does not have morning jaw pain. She does not grind her teeth during sleep. She rarely is bothered by neck pain during the day. she has not awakened by pain during the night. She rarely wakes up feeling stiff in the morning, rarely wakes up with sore or achy muscles and rarely wakes up with pain in the neck and spine. She is not working at present. She has headaches, sexual problems, memory problems and a difficult time making decisions. Normal bedtime is 10:00 p.m., falling asleep around 2 in the morning. It may take 2-4 hours for to fall asleep. She wakes up sometimes not at all. That would be a great night of sleep. If she does wake during the night she will get out of bed and go to the sofa, read a book or take a bath. She wakes the morning between 7 and 8:00 a.m.. She denies taking naps. A short nap is not refreshing. She is drowsy in the morning for 3 hours or longer. Habits: Quit tobacco 2 years ago. Caffeine 1 cup of coffee in the morning. Alcohol :1 or 2 servings on the weekends. Previously smoked marijuana which helped her with sleep in the past. She does not do that currently. [facility] Past Medical History Medical History (Reviewed 12/10/20 @ 15:42 by Elier
[2020-12-10 18:11] VITALS: BMI 28.5
== END 2020-11-29 08:50 | disposition home or self-care (01) ==
LOC: ANHCSM 08:49
PROVIDERS: PCP Physician Assistant; Visit Provider Internal Medicine Critical Care Medicine
DX: G47.00 Insomnia, unspecified (principal); G47.30 Sleep apnea, unspecified
CPT/HCPCS: 95806

== ENCOUNTER 2022-11-03 09:47 | Inpatient (IN) | payer OTHER, SELFPAY ==
[2022-11-03] VITALS (88 sets, daily range): BP systolic 78–162; BP diastolic 24–133; PULSE 58–124; TEMP 37.2; O2SAT 95–100; BMI 31.1
--- NOTE | 2022-11-03 09:47 | OBADM ---
This patient, Nadege Thompson, admitted to the OB room OB Post 116 for observation. Patient/family oriented to hospital policies and general routines including ID bracelet, bed and alarms, visiting hours, pain management, procedures, bathroom and other care routines, personal items, smoking policy, room service/diet, and visiting hours. Patient/Family are encouraged to report perceived risks to care and to ask questions if they do not understand what they are told or what they should do.
--- NOTE | 2022-11-03 10:13 | PC.NURSE ---
pt reports having elevated blood pressures at home and complaints of a migraine since the morning. Pt reports taking 2 tylenol 500mg tabs at 0500 and Fioricet 2 tabs @ 0515. pt denies complications during this .
[2022-11-03 10:25] LABS: Basophils Absolute Auto 0.1 K/mm3 (0.0-0.1); Basophils Percent Auto 0.9 % (0.2-1.2); Eosinophils Absolute Auto 0.1 K/mm3 (0-0.3); Eosinophils Percent Auto 0.9 % (0-4.4); Hematocrit 32.6 % (37.0-47.0); Hemoglobin 11.1 g/dL (12.0-15.0); Immature Granulocyte Absolute 0.03 K/mm3 (0.00-0.031); Immature Granulocyte Percent A 0.4 % (0-0.5); Lymphocytes Absolute Auto 1.59 K/mm3 (0.9-3.2); Lymphocytes Percent Auto 23.6 % (18.3-44.2); Mean Corpuscular Hemoglobin 32.2 pg (26-34); Mean Corpuscular Volume 94.5 fl (80-100); Mean Platelet Volume 11.9 fl (7.4-10.4); Monocytes Absolute Auto 0.8 K/mm3 (0.1-0.6); Monocytes Percent Auto 12.4 % (2.6-8.5); Neutrophils Absolute Auto 4.2 K/mm3 (1.3-6.7); Neutrophils Percent Auto 61.8 % (45.5-73.1); Platelet Count Result 186 k/mm3 (150-375); Red Blood Count 3.45 M/mm3 (4.2-5.4); Red Cell Distribution Width 14.5 % (11.5-14.5); White Blood Count 6.8 K/mm3 (4.5-10.0)
[2022-11-03 10:33] LABS: Alanine Aminotransferase 15 U/L (6-35); Albumin Level 3.3 g/dL (3.5-5.1); Alkaline Phosphatase 194 U/L (38-126); Anion Gap 4 mmol/L (8-16); Aspartate Amino Transferase 22 U/L (14-36); Bilirubin,Total 0.4 mg/dL (0.2-1.3); Blood Urea Nitrogen 8 mg/dL (7-17); Calcium 8.4 mg/dL (8.4-10.2); Carbon Dioxide 21 mmol/L (22-30); Chloride 110 mmol/L (98-107); Estimated Glomerular Filt Rate > 60; Glucose 72 mg/dL (65-110); Potassium 4.4 mmol/L (3.4-5.0); Sodium 135 mmol/L (137-145)
[2022-11-03 10:43] LABS: Total Protein Urine Random 98 mg/dL; Ur Ttl Prot Creatinine Ratio 0.88 mg/mg (0-0.20)
[2022-11-03 10:45] LABS: Add Urine Microscopic? YES; Appearance Urine Cloudy (Clear); Bacteria Urine 4+ /hpf; Bilirubin Urine Negative (Negative); Blood Urine Negative (Negative); Color Urine Yellow (Yellow); Glucose Urine UA Negative (Negative); Ketones Urine Negative (Negative); Leukocyte Esterase Ur Negative LEU/UL (NEGATIVE); Need Manual Microscopic Reviewed; Nitrate Urine Negative (Negative); Non Pathogenic Casts 0-2; Protein Urine 2+ mg/dL (Negative); RBC Urine 0-2 /hpf (0-2); Specific Grav Ur 1.017 (1.001-1.035); Squamous Epithelial Cell Urine Occasional /hpf (Few); Urobilinogen Urine 0.2 mg/dL (<2.0); WBC Urine 21-50 /hpf (0-3)
--- NOTE | 2022-11-03 11:20 | PC.NURSE ---
Dr. Tian at the bedside examining the pt.
--- NOTE | 2022-11-03 11:26 | WPDOBADMIT ---
Obstetrics - Admit Note Admission Note: record reviewed. Additions to the history and/or subsequent changes in the physical findings follow. 37 y/o at 37 3/7 weeks here with headache and elevated bp at home. She took Fioricet 2 tabs at 5:15 today, but did not have much improvement in her headache. No visual change. Good movement. No contractions. No midepigastric or RUQ pain. AVSS NST good variability TOCO: no contractions ABD soft, nontender, gravid EXT nontender, no edema NEURO: 2+/4 DTR in lower extremities, symmetric 2+proteinuria, Pr:Cr 0.8 Other labs mostly unremarkable. A: IUP at 37 3/7 weeks with history of preeclampsia leading to 35 week delivery. Now with headache, 2+proteinuria. P: Treat headache with sumatriptan. Observe. If headache improves, plan home to collect 24 hour urine for protein.
[2022-11-03] MEDS: SUMAtriptan SUCCINATE 25 MG TABLET 100 MG PO (11:36)
--- NOTE | 2022-11-03 12:39 | PC.NURSE ---
pt reports her head feels no better than before. MD notified order received Benadryl 50mg once.
--- NOTE | 2022-11-03 12:46 | PC.NURSE ---
Dr. Tian called back order for 2 tabs of Fioricet be given in addition to the Benadryl.
[2022-11-03] MEDS: ACETAMINOPHEN/BUTALBITAL/CAFFEINE 325-50-40 MG TABLET (FIORICET) 2 TAB PO (12:52)
[2022-11-03] MEDS: diphenhydrAMINE HCl CAP 25 MG CAPSULE 50 MG PO (12:53)
--- NOTE | 2022-11-03 14:31 | PC.NURSE ---
Dr. Tian updated on the pt. pt still complains of pain 03/08. MD ordered IV fluid bolus on the pt and see how the pt feels after being IV hydrated.
[2022-11-03] MEDS: LACTATED RINGERS 1,000 ML 999 ML IV CONT (15:34)
--- NOTE | 2022-11-03 17:05 | PC.NURSE ---
Dr. Tian updated on pt. pt complaining of 02/05 pain. Order received for Demerol 50mg IM x 1 and LR 150ml/hr.
[2022-11-03] MEDS: LACTATED RINGERS 1,000 ML 150 ML IV CONT (17:20)
[2022-11-03] MEDS: MEPERIDINE HCL INJ (*CRX) 50 MG/ML AMPUL IM (17:21)
[2022-11-03] MEDS: METOCLOPRAMIDE HCL INJ 10 MG/2 ML VIAL IV PUSH (19:10)
[2022-11-03] MEDS: diphenhydrAMINE HCl INJ 50 MG/ML VIAL 25 MG IV PUSH (19:10)
[2022-11-03] MEDS: MAGNESIUM SULF 4 GM/WATER100ML 4 GM/100 ML BAG IVPB (19:50)
[2022-11-03] MEDS: LACTATED RINGERS 1,000 ML 75 ML IV CONT (19:50)
[2022-11-03] MEDS: MAGNESIUM SULF 20GM/WATER500ML 500 ML 50 MG IV CONT (20:20)
--- NOTE | 2022-11-03 20:37 | WPDANESEPPF ---
Anes - Initial Pre Proc Eval Procedure: Date/Time: 11/03/22 20:37 Surgeon: Adalberto Tian MD Pre Op Diagnosis: PIH Pre Op Diagnosis: PI Workup Patient Data Age: 37 Gender: F Height: 1.65 m Weight: 85 kg Last Vital Signs Pulse 68 11/03/22 20:31 BP 116/79 11/03/22 20:31 Pulse Ox 99 11/03/22 20:32 O2 Del Method Room Air 11/03/22 11:00 Allergies Allergy/AdvReac Type Severity Reaction Status Date / Time sulfamethoxazole Allergy Unknown Hives Verified 03/01/21 09:46 trimethoprim Allergy Unknown Seizure Verified 03/01/21 09:46 yellow dye Allergy Unknown Swelling Verified 03/01/21 09:46 of Lip/Tongue/Throat Home Medications Medication Instructions Recorded Confirmed Type omeprazole 20 mg capsule,delayed 20 mg PO DAILY 05/09/20 03/01/21 History release amitriptyline 10 mg tablet 30 mg PO QHS 12/28/20 03/01/21 History prenat.vits,bonnie,vce-wzlq-ksdeu 1 tablet PO DAILY 12/28/20 03/01/21 History vilazodone 40 mg tablet (Viibryd) 40 mg PO DAILY 12/28/20 03/01/21 History Laboratory Tests 11/03/22 11/03/22 11/03/22 10:08 10:08 10:08 WBC 6.8 K/mm3 K/mm3 (4.5-10.0) RBC 3.45 M/mm3 L M/mm3 (4.2-5.4) Hgb 11.1 g/dL L g/dL (12.0-15.0) Hct 32.6 % L % (37.0-47.0) MCV 94.5 fl fl (80-100) MCH 32.2 pg pg (26-34) MCHC 34.0 g/dl g/dl (32-36) RDW 14.5 % % (11.5-14.5) Plt Count 186 k/mm3 k/mm3 (150-375) MPV 11.9 fl H fl (7.4-10.4) Immature Gran % (Auto) 0.4 % % (0-0.5) Neut % (Auto) 61.8 % % (45.5-73.1) Lymph % (Auto) 23.6 % % (18.3-44.2) [place] % (Auto) 12.4 % H % (2.6-8.5) Eos % (Auto) 0.9 % % (0-4.4) Baso % (Auto) 0.9 % % (0.2-1.2) Lymph # (Auto) 1.59 K/mm3 K/mm3 (0.9-3.2) [place] # (Auto) 0.8 K/mm3 H K/mm3 (0.1-0.6) Eos # (Auto) 0.1 K/mm3 K/mm3 (0-0.3) Baso # (Auto) 0.1 K/mm3 K/mm3 (0.0-0.1) Abs Immat Gran (auto) 0.03 K/mm3 K/mm3 (0.00-0.031) Absolute Neuts (auto) 4.2 K/mm3 K/mm3 (1.3-6.7) Absolute Nucleated RBC 0.0 K/mm3 K/mm3 (0.0-0.012) Nucleated RBC % 0.0 % % (0.0-0.2) Sodium Potassium Chloride Carbon Dioxide Anion Gap BUN Creatinine Estim Creat Clear Calc Estimated GFR Glucose Uric Acid Calcium Total Bilirubin AST ALT Alkaline Phosphatase Total Protein Albumin Urine Color Yellow (Yellow) Urine Appearance Cloudy H (Clear) Urine pH 7.0 (5.0-9.0) Ur Specific [place] 1.017 (1.001-1.035) Urine Protein 2+ mg/dL H mg/dL (Negative) Urine Glucose (UA) Negative mg/dL mg/dL (Negative) Urine Ketones Negative mg/dL mg/dL (Negative) Ur Blood (Man) Negative (Negative) Urine Nitrate Negative (Negative) Urine Bilirubin Negative (Negative) Urine Urobilinogen 0.2 mg/dL mg/dL (<2.0) Ur Leukocyte Esterase Negative BRENDA/UL BRENDA/UL (NEGATIVE) Add Ur Microanalysis Reviewed Urine RBC 0-2 /hpf /hpf (0-2) Urine WBC 21-50 /hpf /hpf (0-3) Ur Squamous Epith Cells Occasional /hpf /hpf (Few) Urine Bacteria 4+ /hpf H /hpf Urine Casts 0-2 U Random Total Protein 98 mg/dL mg/dL Urine Creatinine 111.0 mg/dL mg/dL Protein/Creat Ratio 2 0.88 mg/mg H mg/mg (0-0.20) 11/03/22 10:08 WBC RBC Hgb Hct MCV MCH MCHC RDW Plt Count MPV Immature Gran % (Auto) Neut % (Auto) Lymph % (Auto)
--- NOTE | 2022-11-03 21:42 | PM.IMHP ---
H&P: HPI History of Present Illness Date/Time: 11/03/22 21:42 Chief Complaint: Headache Narrative: 37 y/o at 37 3/7 weeks with a prior at 35 weeks for preeclampsia, here with headache that she woke up with. She had about a dozen elevated bp readings at home and phoned me. I asked her to come in. Here she has had mostly normal bp readings, with a few in the 140-150 / 90 range. She reports a persistent 8/10 headache, worst of my life, despite being able to smile and joke. In addition, the Pr:Cr ratio is 0.8 and the urine dipstick showed 2+ protein. We have tried IV hydration and a number of different analgesics over the course of the afternoon and evening, because her objective bearing was not commensurate with her reported severity of headache. However, because the headache never was able to resolve, I have offered to go ahead with delivery. I offered repeat , and also magnesium sulfate for seizure prophylaxis. 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 Insomnia Irritable bowel Irritable bowel syndrome affecting Migraine depression Preeclampsia 12/01/2019; Surgical History Surgical History (Updated 11/03/22 @ 21:50 by Adalberto Tian MD) History of delivery Family History Family History Mother Hypothyroid Social History Social History Social History: the patient is and has 1 child. 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 She is a full code and her is a durable power family law attorney for healthcare. Patient denies any current tobacco use no marijuana alcohol or illicit drugs. She lives with her . Years smoked: 2 Smoking status: Former smoker Additional smoking assessment comments: Would smoke socially Alcohol intake: current Drinks per week: 1 Substance use: never Substance use type: does not use Gender identity (if verbalized by the patient): Female Spiritual care concerns: No Meds Home Medications and Allergies Home Medications Medication Instructions Recorded Confirmed Type omeprazole 20 mg capsule,delayed 20 mg PO DAILY 05/09/20 03/01/21 History release amitriptyline 10 mg tablet 30 mg PO QHS 12/28/20 03/01/21 History prenat.vits,bonnie,ffw-zjva-uufam 1 tablet PO DAILY 12/28/20 03/01/21 History vilazodone 40 mg tablet (Viibryd) 40 mg PO DAILY 12/28/20 03/01/21 History Allergies Allergy/AdvReac Type Severity Reaction Status Date / Time sulfamethoxazole Allergy Unknown Hives Verified 03/01/21 09:46 trimethoprim Allergy Unknown Seizure Verified 03/01/21 09:46 yellow dye Allergy Unknown Swelling Verified 03/01/21 09:46 of Lip/Tongue/Throat Vital Signs Vital Signs - 24 hr 11/03/22 10:16 11/03/22 10:31 11/03/22 10:46 Pulse Rate 72 68 68 Blood Pressure 139/83 151/95 H 135/78 Blood Pressure [Left Arm] Pulse Oximetry Oxygen Delivery 11/03/22 11:02 11/03/22 11:16 11/03/22 11:31 Pulse Rate 70 66 71 Blood Pressure 126/80 134/86 141/78 H Blood Pressure [Left Arm] Pulse Oximetry Oxygen Delivery 11/03/22 11:46 11/03/22 12:01 11/03/22 12:31 Pulse Rate 73 64 Blood Pressure 133/86 145/88 H 150/133 H Blood Pressure [Left Arm] Pulse Oximetry Oxygen Delivery 11/03/22 12:33 11/03/22 16:42 11/03/22 17:25 Pulse Rate 67 68 Blood Pressure 139/80 149/90 H Blood Pressure [Left Arm] Pulse Oximetry 99 Oxygen Delivery 11/03/22 17:30 11/03/22 17:35 11/03/22 17:40 Pulse Rate Blood Pressure Blood Pressure
--- NOTE | 2022-11-03 21:52 | WPDHPUPDATE1 ---
History and Physical Update Update Date/Time: 11/03/22 21:52 History and Physical has been reviewed, including an updated exam of the patient. There are NO changes in the patient's condition. Risks, benefits, and alternatives have been discussed and questions answered. Patient agrees to proceed with procedure.
[2022-11-03] MEDS: ceFAZolin 2 GM/D5W 50 ML 2 GM/50 ML BAG IVPB (21:57)
--- NOTE | 2022-11-03 22:48 | PM.OBPRVD ---
OB - Delivery Note Procedure Delivery date: 11/03/22 Procedure: Procedures Operation Date: 11/03/22 21:30 <No data on this case meets the specified criteria> Repeat low transverse delivery Events: Preeclampsia w severe features Delivery monitor: External FHT Route of delivery: Specimen: Yes (cord blood, placenta) Quantitative Blood Loss (ml): 530 Anesthesia type: Spinal Disposition: PACU Complications: None Narrative: The patient was taken to the operating room where she was prepared and draped in the usual sterile fashion in dorsal supine position with a leftward tilt. She received cefazolin preoperatively. Spinal anesthesia was found to be adequate. A Pfannenstiel skin incision was made along the previous scar line and was carried through to the underlying layer of the fascia. The fascia was incised in the midline and the incision was extended laterally. The fascia was dissected free of the underlying rectus muscles. The rectus muscles were in the midline. The peritoneum was identified, tented up and entered sharply. The peritoneal incision was extended superiorly and inferiorly with good visualization of the bladder. The bladder blade was placed. The vesicouterine peritoneum was identified, tented up and entered sharply. The incision was extended laterally and the bladder flap was developed. The bladder blade was replaced. The uterus was then incised sharply in a transverse fashion along the lower uterine segment. The incision was extended laterally. The 's head was delivered atraumatically to the sterile field, followed by the body. The nose and mouth were bulb suctioned. After a delay, the cord was clamped and cut. The was handed off the field. Cord blood was collected. The placenta was removed manually and was passed off the field. The uterus was exteriorized and cleared of all clots and debris. The uterine incision was reapproximated using 0 Monocryl in a running, locked fashion. A second, imbricating layer of the same suture was run. Excellent hemostasis resulted as did excellent reapproximation of the normal anatomy. The uterus was returned the abdomen. The pelvis was irrigated copiously with warmed normal saline. The bladder flap was treated with Hemaderm. Rigorous hemostasis was assured. The fascial layer was reapproximated using 0 Vicryl in a running fashion. The skin was closed with a running, subcuticular stitch of 4 0 Vicryl. Dermaflex was applied externally. Sponge, lap, needle and instrument counts were correct. The patient was taken to the recovery room in stable condition. The infant went to the nursery in stable condition. I was present and scrubbed the entire procedure. Baby Date of : 11/03/22 Time of : 22:07 Weeks of gestation at delivery: 37 gender: Female Weight (pounds): 6 Weight (ounces): 8 presentation: vertex Placenta delivery description: Manual Removal and Normal Configuration Cord Vessel Description: 3 Vessels and Delayed Cord Clamping score one minute: 8 score five minutes: 9
--- NOTE | 2022-11-03 22:52 | PM.OBDSVD ---
DS: Admitting Diagnosis Discharge Date 11/06/22 Admitting Diagnosis IUP at 37 3/7 weeks Preeclampsia Headache Prior DS: Discharge Diagnosis Discharge Diagnosis (1) Headache: Code(s): R51.9 - Headache, unspecified Status: Acute (2) Preeclampsia: Code(s): O14.90 - Unspecified pre-eclampsia, unspecified trimester Status: Acute (3) delivery delivered: Code(s): O82 - Encounter for delivery without indication Status: Acute OB - DS: Summary OB Procedures : PIH Mgmt OB Procedures Intrapartum: OB Procedures: : None Peripartum Data Procedures: Procedures Operation Date: 11/03/22 21:30 <No data on this case meets the specified criteria> Time Spent with Patient Time attestation: Total time spent providing and/or coordinating discharge services: DS: Data Data Completed and Pending Labs on day of discharge: Labs from last 24 hours 11/03/22 11/03/22 11/03/22 10:08 10:08 10:08 WBC 6.8 RBC 3.45 L Hgb 11.1 L Hct 32.6 L MCV 94.5 MCH 32.2 MCHC 34.0 RDW 14.5 Plt Count 186 MPV 11.9 H Immature Gran % (Auto) 0.4 Neut % (Auto) 61.8 Lymph % (Auto) 23.6 [place] % (Auto) 12.4 H Eos % (Auto) 0.9 Baso % (Auto) 0.9 Lymph # (Auto) 1.59 [place] # (Auto) 0.8 H Eos # (Auto) 0.1 Baso # (Auto) 0.1 Abs Immat Gran (auto) 0.03 Absolute Neuts (auto) 4.2 Absolute Nucleated RBC 0.0 Nucleated RBC % 0.0 Sodium 135 L Potassium 4.4 Chloride 110 H Carbon Dioxide 21 L Anion Gap 4 L BUN 8 D Creatinine 0.70 Estim Creat Clear Calc Not Reportable Estimated GFR > 60 Glucose 72 Uric Acid 7.0 Calcium 8.4 Total Bilirubin 0.4 AST 22 ALT 15 Alkaline Phosphatase 194 H Total Protein 6.0 L Albumin 3.3 L Urine Color Urine Appearance Urine pH Ur Specific [place] Urine Protein Urine Glucose (UA) Urine Ketones Ur Blood (Man) Urine Nitrate Urine Bilirubin Urine Urobilinogen Ur Leukocyte Esterase Add Ur Microanalysis Urine RBC Urine WBC Ur Squamous Epith Cells Urine Bacteria Urine Casts U Random Total Protein 98 Urine Creatinine 111.0 Protein/Creat Ratio 2 0.88 H 11/03/22 10:08 WBC RBC Hgb Hct MCV MCH MCHC RDW Plt Count MPV Immature Gran % (Auto) Neut % (Auto) Lymph % (Auto) [place] % (Auto) Eos % (Auto) Baso % (Auto) Lymph # (Auto) [place] # (Auto) Eos # (Auto) Baso # (Auto) Abs Immat Gran (auto) Absolute Neuts (auto) Absolute Nucleated RBC Nucleated RBC % Sodium Potassium Chloride Carbon Dioxide Anion Gap BUN Creatinine Estim Creat Clear Calc Estimated GFR Glucose Uric Acid Calcium Total Bilirubin AST ALT Alkaline Phosphatase Total Protein Albumin Urine Color Yellow Urine Appearance Cloudy H Urine pH 7.0 Ur Specific [place] 1.017 Urine Protein 2+ H Urine Glucose (UA) Negative Urine Ketones Negative Ur Blood (Man) Negative Urine Nitrate Negative Urine Bilirubin Negative Urine Urobilinogen 0.2 Ur Leukocyte Esterase Negative Add Ur Microanalysis Reviewed Urine RBC 0-2 Urine WBC 21-50 Ur Squamous Epith Cells Occasional Urine Bacteria 4+ H Urine Casts 0-2 U Random Total Protein Urine Creatinine Protein/Creat Ratio 2 Discharge Plan Discharge Attending physician on discharge: Adalberto Tian Discharging Clinician: Adalberto Tian Patient Disposition: Home, Self-Care Activity: may shower, may drive after 2 weeks and pelvic rest Diet: regular Wound Care Instructions: incision open to air Discharge Instructions: Call or return if temperature above 100.4? F, increased abdominal pain, increased vaginal bleeding or any new problems. Stand Alone Forms: General Discharge Information Follow-up/Referrals: Adalberto Tian MD [Physician] - 4 W
[2022-11-03] MEDS: OXYTOCIN 30 UNITS/NS 500 ML 30 UNITS/500 ML BAG 125 UNITS IV CONT (23:45)
[2022-11-04] VITALS (17 sets, daily range): BP systolic 111–151; BP diastolic 76–103; PULSE 59–70; RESP 16–18; TEMP 36.4–37; O2SAT 97–99
[2022-11-04] MEDS: LORATADINE 10 MG TABLET PO (01:45)
[2022-11-04] MEDS: KETOROLAC 30 MG/ML VIAL (*BKC) IV PUSH ×2 (01:45→07:39)
--- NOTE | 2022-11-04 02:10 | PC.NURSE ---
Patient transferred to post room #282 via ( Stretcher ). Support person present. Oriented to unit, room, information board, rooming in, admission packet and security measures. Patient verbalizes understanding.
--- NOTE | 2022-11-04 03:32 | LDADM ---
This patient, Nadege Thompson, was admitted to OB 2nd Floor Room 282 on 11/03/22 at 18:00. Plans for labor, pain management and were discussed with patient. Patient/family oriented to hospital policies and general routines including ID bracelet, bed and alarms, visiting hours, pain management, procedures, bathroom and other care routines, personal items, smoking policy, room service/diet and guest tray routines, infant security routines, and visiting hours. Patient/Family are encouraged to report perceived risks to care and to ask questions if they do not understand what they are told or what they should do. See OBIX for further documentation.
--- NOTE | 2022-11-04 05:53 | PM.OBPNVD ---
OB - PN: Subj Subjective Date/time seen: 11/04/22 05:53 Narrative: Pain OK. Headache resolved. Still with nausea and itching. OB - PN: Obj Data Labs 11/03/22 10:08 11/03/22 10:08 Labs: Laboratory Results - last 24 hr 11/03/22 11/03/22 11/03/22 10:08 10:08 10:08 WBC 6.8 RBC 3.45 L Hgb 11.1 L Hct 32.6 L MCV 94.5 MCH 32.2 MCHC 34.0 RDW 14.5 Plt Count 186 MPV 11.9 H Immature Gran % (Auto) 0.4 Neut % (Auto) 61.8 Lymph % (Auto) 23.6 [place] % (Auto) 12.4 H Eos % (Auto) 0.9 Baso % (Auto) 0.9 Lymph # (Auto) 1.59 [place] # (Auto) 0.8 H Eos # (Auto) 0.1 Baso # (Auto) 0.1 Abs Immat Gran (auto) 0.03 Absolute Neuts (auto) 4.2 Absolute Nucleated RBC 0.0 Nucleated RBC % 0.0 Sodium Potassium Chloride Carbon Dioxide Anion Gap BUN Creatinine Estim Creat Clear Calc Estimated GFR Glucose Uric Acid Calcium Total Bilirubin AST ALT Alkaline Phosphatase Total Protein Albumin Urine Color Yellow Urine Appearance Cloudy H Urine pH 7.0 Ur Specific [place] 1.017 Urine Protein 2+ H Urine Glucose (UA) Negative Urine Ketones Negative Ur Blood (Man) Negative Urine Nitrate Negative Urine Bilirubin Negative Urine Urobilinogen 0.2 Ur Leukocyte Esterase Negative Add Ur Microanalysis Reviewed Urine RBC 0-2 Urine WBC 21-50 Ur Squamous Epith Cells Occasional Urine Bacteria 4+ H Urine Casts 0-2 U Random Total Protein 98 Urine Creatinine 111.0 Protein/Creat Ratio 2 0.88 H 11/03/22 10:08 WBC RBC Hgb Hct MCV MCH MCHC RDW Plt Count MPV Immature Gran % (Auto) Neut % (Auto) Lymph % (Auto) [place] % (Auto) Eos % (Auto) Baso % (Auto) Lymph # (Auto) [place] # (Auto) Eos # (Auto) Baso # (Auto) Abs Immat Gran (auto) Absolute Neuts (auto) Absolute Nucleated RBC Nucleated RBC % Sodium 135 L Potassium 4.4 Chloride 110 H Carbon Dioxide 21 L Anion Gap 4 L BUN 8 D Creatinine 0.70 Estim Creat Clear Calc Not Reportable Estimated GFR > 60 Glucose 72 Uric Acid 7.0 Calcium 8.4 Total Bilirubin 0.4 AST 22 ALT 15 Alkaline Phosphatase 194 H Total Protein 6.0 L Albumin 3.3 L Urine Color Urine Appearance Urine pH Ur Specific [place] Urine Protein Urine Glucose (UA) Urine Ketones Ur Blood (Man) Urine Nitrate Urine Bilirubin Urine Urobilinogen Ur Leukocyte Esterase Add Ur Microanalysis Urine RBC Urine WBC Ur Squamous Epith Cells Urine Bacteria Urine Casts U Random Total Protein Urine Creatinine Protein/Creat Ratio 2 OB - PN A/P Plan day: 1 Comments: A: POD#1, doing well. Preeclampsia clinically beginning to resolve. P: Routine care. Continue magnesium sulfate for 24 hours . Exam Narrative: AVSS I/O OK ABD soft, nontender, fundus firm. Incision c/d/i. EXT nontender
[2022-11-04] MEDS: LACTATED RINGERS 1,000 ML 75 ML (05:56)
[2022-11-04 06:18] LABS: Basophils Percent Auto 0.3 % (0.2-1.2); Hematocrit 31.4 % (37.0-47.0); Hemoglobin 10.7 g/dL (12.0-15.0); Immature Granulocyte Absolute 0.08 K/mm3 (0.00-0.031); Immature Granulocyte Percent A 0.6 % (0-0.5); Lymphocytes Absolute Auto 1.16 K/mm3 (0.9-3.2); Lymphocytes Percent Auto 8.1 % (18.3-44.2); Mean Corpuscular HGB Conc 34.1 g/dl (32-36); Mean Corpuscular Hemoglobin 31.7 pg (26-34); Mean Corpuscular Volume 92.9 fl (80-100); Mean Platelet Volume 11.7 fl (7.4-10.4); Monocytes Absolute Auto 0.9 K/mm3 (0.1-0.6); Monocytes Percent Auto 6.4 % (2.6-8.5); Neutrophils Absolute Auto 12.1 K/mm3 (1.3-6.7); Neutrophils Percent Auto 84.6 % (45.5-73.1); Platelet Count Result 188 k/mm3 (150-375); Red Blood Count 3.38 M/mm3 (4.2-5.4); White Blood Count 14.3 K/mm3 (4.5-10.0)
[2022-11-04 06:24] LABS: Magnesium 6.4 mg/dL (1.6-2.3)
[2022-11-04] MEDS: HYDROcodone/acetaminophen (*CRX) 5-325 MG TABLET 1 TAB PO (06:24)
[2022-11-04] MEDS: MAGNESIUM SULF 20GM/WATER500ML 500 ML 50 MG IV CONT (08:11)
--- NOTE | 2022-11-04 09:45 | WPDANLDPN2 ---
Anes-Prog Note L&D Date/Time: 11/04/22 09:45 Comfortable throughout: section Neuraxial method: spinal Epidural/Spinal procedure site: clean & non-tender Neuro status: Neuro function grossly intact. Cardiovascular status: normal Respiratory status: normal Airway patency: baseline Mental status: baseline Post-Op hydration status: normal Vital Signs: Last Vital Signs Temp 36.5 C 11/04/22 06:20 Pulse 64 11/04/22 06:20 Resp 18 11/04/22 06:20 BP 111/77 11/04/22 06:20 Pulse Ox 97 11/04/22 06:20 O2 Del Method Room Air 11/04/22 03:04 Pain score (VAS): 0 I/O: Intake & Output 11/03/22 11/04/22 11/04/22 23:59 07:59 15:59 Intake Total 1440 Output Total 150 675 Balance -150 765 Post-procedural complaints: none Patient feedback: Patient satisfied with anesthetic care.
--- NOTE | 2022-11-04 09:46 | WPDANLDNPN2 ---
Anes-Prog Note L&D-Neuraxial Date/Time: 11/04/22 09:46 Neuraxial medications: intrathecal PF morphine Opiod-related complaints: pruritis Patient feedback: Patient satisfied with post-operative pain management.
[2022-11-04] MEDS: DOCUSATE SODIUM 100 MG CAPSULE ×2 (11:16→17:43)
[2022-11-04] MEDS: HYDROcodone/acetaminophen (*CRX) 10-325 MG TABLET 1 TAB PO ×3 (11:16→23:11)
[2022-11-04] MEDS: MULTIVIT/MIN/PREN/FOL AC/IRON TABLET 1 TAB PO (11:17)
[2022-11-04] MEDS: TETANUS,DIPHTHERIA,AC PERTUSSIS ADULT (0.5 ML) BOOSTRIX IM (11:17)
[2022-11-04] MEDS: PANTOPRAZOLE 40 MG TABLET PO (13:11)
[2022-11-04] MEDS: SIMETHICONE 80 MG TAB.CHEW PO ×3 (15:52→23:10)
[2022-11-04] MEDS: IBUPROFEN 600 MG TABLET PO (15:52)
[2022-11-04] MEDS: AMITRIPTYLINE HCL 10 MG TABLET PO (23:10)
[2022-11-05 00:10] VITALS: BP 130/86
[2022-11-05] MEDS: HYDROcodone/acetaminophen (*CRX) 5-325 MG TABLET 1 TAB PO ×5 (05:43→23:00)
[2022-11-05 05:45] VITALS: BP 124/84
[2022-11-05] MEDS: SIMETHICONE 80 MG TAB.CHEW PO ×4 (05:48→16:57)
[2022-11-05] MEDS: PANTOPRAZOLE 40 MG TABLET PO (08:48)
[2022-11-05] MEDS: LORATADINE 10 MG TABLET PO (08:48)
[2022-11-05] MEDS: IBUPROFEN 600 MG TABLET PO ×3 (08:48→23:00)
[2022-11-05] MEDS: MULTIVIT/MIN/PREN/FOL AC/IRON TABLET 1 TAB PO (08:48)
[2022-11-05 08:50] VITALS: BP 123/82; PULSE 72; RESP 18; TEMP 36.9
[2022-11-05] MEDS: BISACODYL 10 MG SUPPOSITORY RECTAL (12:51)
--- NOTE | 2022-11-05 14:14 | PM.OBPNVD ---
OB - PN: Subj Subjective Date/time seen: 11/05/22 14:14 Narrative: Pain OK. Tolerating diet. OB - PN: Obj Data Labs 11/04/22 05:52 11/03/22 10:08 OB - PN A/P Plan day: 2 Comments: A: POD#2, doing well. P: Routine care. Exam Narrative: AVSS I/O OK ABD soft, nontender, fundus firm. Incision c/d/i. EXT nontender
[2022-11-05 16:50] VITALS: BP 141/84; PULSE 72; RESP 20; TEMP 36.8; O2SAT 100
--- NOTE | 2022-11-05 17:42 | PC.NURSE ---
Assisted pt with putting on abdominal binder.
[2022-11-05] MEDS: ACETAMINOPHEN 325 MG TABLET 650 MG PO (18:45)
[2022-11-05] MEDS: HYDROcodone/acetaminophen (*CRX) 10-325 MG TABLET 1 TAB PO (20:01)
[2022-11-05] MEDS: AMITRIPTYLINE HCL 10 MG TABLET 30 MG PO (20:01)
[2022-11-05 20:04] VITALS: BP 148/78; PULSE 72; RESP 18; TEMP 36.9; O2SAT 99
[2022-11-05 23:00] VITALS: BP 145/87; PULSE 77
[2022-11-06] MEDS: HYDROcodone/acetaminophen (*CRX) 5-325 MG TABLET 1 TAB PO (05:09)
[2022-11-06] MEDS: IBUPROFEN 600 MG TABLET PO ×2 (05:09→12:25)
[2022-11-06 05:10] VITALS: BP 129/82; PULSE 75
[2022-11-06 08:05] VITALS: BP 139/93; PULSE 68; RESP 16; TEMP 36.7; O2SAT 98
[2022-11-06] MEDS: LORATADINE 10 MG TABLET PO (08:36)
[2022-11-06] MEDS: MULTIVIT/MIN/PREN/FOL AC/IRON TABLET 1 TAB PO (08:36)
[2022-11-06] MEDS: PANTOPRAZOLE 40 MG TABLET PO (08:36)
[2022-11-06] MEDS: HYDROcodone/acetaminophen (*CRX) 10-325 MG TABLET 1 TAB PO ×2 (08:38→12:26)
--- NOTE | 2022-11-06 08:49 | PM.OBPNVD ---
OB - PN: Subj Subjective Date/time seen: 11/06/22 08:49 Narrative: Pain OK. Tolerating diet. Would like to go home. OB - PN: Obj Data Labs 11/04/22 05:52 11/03/22 10:08 OB - PN A/P Plan Comments: A: POD#3, doing well. P: Home to f/u 4 weeks. Exam Narrative: AVSS ABD soft, nontender, fundus firm. Incision c/d/i. EXT nontender
[2022-11-06 12:33] VITALS: BP 144/92; PULSE 81; RESP 16; TEMP 36.9; O2SAT 98
[2022-11-08 11:00] VITALS: BP 137/83; PULSE 84; RESP 20; TEMP 37.4; O2SAT 100
== END 2022-11-06 13:20 | disposition home or self-care (01) | DRG 788 ==
LOC: ANHOBPP 17:45 → ANHLDR 22:11 → ANHOB2 11-04 02:36
PROVIDERS: Admitting Provider Obstetrics & Gynecology; PCP Physician Assistant; Visit Provider Obstetrics & Gynecology
PROC: 10D00Z1 Extraction of Products of Conception, Low, Open Approach (ICD-10-PCS; CPT 59514; principal; 2022-11-03 21:30)
DX: O14.14 Severe pre-eclampsia complicating childbirth (principal); Z37.0 Single live birth; Z3A.37 37 weeks gestation of pregnancy; O34.211 Maternal care for low transverse scar from previous cesarean delivery
CPT/HCPCS: 36415; 59025; 80053; 81001; 82570; 83735; 84156; 84550; 85025; 87086; 87088; 88307; 90715; A9270; J0690; J1200; J1885; J2175; J2274; J2590; J2765; J3475; J7120

== ENCOUNTER 2023-05-25 09:55 | Emergency (ER) | payer OTHER, SELFPAY ==
--- NOTE | 2023-05-25 10:04 | ED.URI ---
HPI - URI/Sore Throat General Chief Complaint: Upper Respiratory Infection Stated Complaint: sorethroat Source: patient and RN notes reviewed History of Present Illness HPI Narrative: 37 yo F presents to urgent care with complaints of a sore throat, pressure in her head, coughing, chest tightness, and generalized weakness. Pt states this has been going on for about 2 weeks. Pt states her PCP put her on Amoxicillin 4 days into the illness for possible strep throat. Pt states she did not improve with amoxicillin so she was recently placed on a z-pack. PCP did not see pt in office but called her in the medications. Pt states she is on Day 3 of the z-pack with no relief. Pt is taking robitussin at home with no relief as well. Denies any congestion, ear pain, chest pain, N/V/D, or fevers in the last week. Related Data Home Medications Medication Instructions Recorded Confirmed omeprazole 20 mg capsule,delayed 20 mg PO DAILY 05/09/20 05/25/23 release amitriptyline 10 mg tablet 30 mg PO QHS 12/28/20 05/25/23 prenat.vits,bonnie,zax-qqcy-apugt 1 tablet PO DAILY 12/28/20 05/25/23 vilazodone 40 mg tablet (Viibryd) 40 mg PO DAILY 12/28/20 05/25/23 alprazolam 0.25 mg tablet 0.25 mg 05/25/23 methylphenidate HCl 10 mg tablet 10 mg 05/25/23 Allergies Allergy/AdvReac Type Severity Reaction Status Date / Time sulfamethoxazole Allergy Unknown Hives Verified 05/25/23 10:17 trimethoprim Allergy Unknown Seizure Verified 05/25/23 10:17 yellow dye Allergy Unknown Swelling Verified 05/25/23 10:17 of Lip/Tongue/Throat Review of Systems Review of Systems: Pertinent positives and pertinent negatives per HPI. 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 Insomnia Irritable bowel Irritable bowel syndrome affecting Migraine depression Preeclampsia 12/01/2019; Surgical History Surgical History (Updated 11/03/22 @ 21:50 by Adalberto Tian MD) History of delivery Family History Family History Mother Hypothyroid Social History Social History Social History: the patient is and has 1 child. 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 She is a full code and her is a durable power deputy county attorney for healthcare. Patient denies any current tobacco use no marijuana alcohol or illicit drugs. She lives with her . Years smoked: 2 Smoking status: Never smoker Second hand tobacco smoke exposure: No Additional smoking assessment comments: Would smoke socially Alcohol intake: current Drinks per week: 1 Substance use: never Substance use type: does not use Lack of Transportation: No Lack of Food: Never True Current Housing: I Have Housing Concerned About Future Housing: No Difficulty Paying Gas/Electric Bills: No Difficulty Paying for Meds: No Currently Unemployed: No Education: High School Diploma/GED Difficulty w/ Childcare or Family Care: No Gender identity (if verbalized by the patient): Female Spiritual care concerns: No Comments At the time of my signature, I reviewed and agree with the nursing past medical, surgical, social, and family history. There is no relevant family history pertinent to the patient complaint. Exam Narrative: GENERAL: This is a well-nourished, well-developed patient, in no apparent distress. HEAD: normocephalic, atraumatic. EYES: Sclera clear/white. Vision is grossly intact. EARS: External ears normal, auditory canals clear and without drainage, TMs normal without perforation. Hearing grossly intact. NOSE: External nose normal with no obvious nasal discharge, nares without redness, no rhi
[2023-05-25 10:09] VITALS: BP 106/73; PULSE 106; RESP 16; TEMP 36.2; O2SAT 100
== END 2023-05-25 10:34 | disposition home or self-care (01) ==
PROVIDERS: Emergency Provider Nurse Practitioner Family; PCP Physician Assistant
DX: J40 Bronchitis, not specified as acute or chronic (principal); J02.9 Acute pharyngitis, unspecified; F32.A Depression, unspecified
CPT/HCPCS: 99213; G0463

== ENCOUNTER 2023-07-26 08:53 | Emergency (ER) | payer OTHER, SELFPAY ==
--- NOTE | 2023-07-26 09:18 | ED.URI ---
HPI - URI/Sore Throat General Chief Complaint: Upper Respiratory Infection Stated Complaint: Sore Throat Time Seen by Provider: 07/26/23 09:18 Source: patient Mode of arrival: ambulatory Limitations: no limitations History of Present Illness HPI Narrative: Nadege is a 38-year-old female patient presenting to clinic today with complaints of a fever, body aches, sore throat, cough, runny nose x 3 days. She reports her kids are home sick with RSV and adenovirus. She reports she gets recurrent strep. MD elicited complaint: fever, cough, sore throat, nasal congestion and other (Body aches) Related Data Home Medications Medication Instructions Recorded Confirmed omeprazole 20 mg capsule,delayed 20 mg PO DAILY 05/09/20 07/26/23 release amitriptyline 10 mg tablet 30 mg PO QHS 12/28/20 07/26/23 methylphenidate HCl 10 mg tablet 10 mg DIRECTED 05/25/23 07/26/23 Allergies Allergy/AdvReac Type Severity Reaction Status Date / Time bupropion [From Wellbutrin] Allergy Severe Seizure Verified 07/26/23 09:11 sulfamethoxazole Allergy Unknown Hives Verified 05/25/23 10:17 trimethoprim Allergy Unknown Seizure Verified 05/25/23 10:17 yellow dye Allergy Unknown Swelling Verified 05/25/23 10:17 of Lip/Tongue/Throat Review of Systems Review of Systems: Pertinent positives per HPI. Patient denies any rash, headache, visual changes, dizziness, shortness of breath, chest pain, palpitations, nausea, vomiting, diarrhea, constipation, abdominal pain, or any urinary issues. 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 Insomnia Irritable bowel Irritable bowel syndrome affecting Migraine depression Preeclampsia 12/01/2019; Surgical History Surgical History History of delivery Family History Family History Mother Hypothyroid Social History Social History Social History: the patient is and has 1 child. 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 Patient denies any current tobacco use no marijuana alcohol or illicit drugs. She lives with her . Years smoked: 2 Smoking status: Never smoker Second hand tobacco smoke exposure: No Additional smoking assessment comments: Would smoke socially Alcohol intake: current Drinks per week: 1 Substance use: never Substance use type: does not use Lack of Transportation: No Lack of Food: Never True Current Housing: I Have Housing Concerned About Future Housing: No Difficulty Paying Gas/Electric Bills: No Difficulty Paying for Meds: No Currently Unemployed: No Education: High School Diploma/GED Difficulty w/ Childcare or Family Care: No Gender identity (if verbalized by the patient): Female Spiritual care concerns: No Comments At the time of my signature, I reviewed and agree with the nursing past medical, surgical, social, and family history. There is no relevant family history pertinent to the patient complaint. Exam Narrative: General: Well-developed, well nourished, in no apparent distress Head: Normocephalic, atraumatic Eyes: Pupils equally round and reactive to light bilaterally, EOM intact, sclera and conjunctive clear, no discharge, lids normal Ears: TMs intact and clear, ear canals clear, no drainage, grossly hearing normal. Nose: Nares patent, clear nasal discharge, no inflammation, no sinus tenderness. Mouth: Oral pharynx red with mild bilateral tonsillar enlargement and exudate without lesions or masses, good dentition, MM
[2023-07-26 09:19] VITALS: BP 114/77; PULSE 111; RESP 16; TEMP 36.6; O2SAT 100
== END 2023-07-26 09:41 | disposition home or self-care (01) ==
PROVIDERS: Emergency Provider Nurse Practitioner Family; PCP Physician Assistant
DX: J06.9 Acute upper respiratory infection, unspecified (principal); B34.9 Viral infection, unspecified; E03.9 Hypothyroidism, unspecified; Z79.899 Other long term (current) drug therapy; Z20.822 Contact with and (suspected) exposure to COVID-19
CPT/HCPCS: 87081; 87426; 87804; 87880; 99213; C9803; G0463

== ENCOUNTER 2023-12-26 12:10 | Outpatient (CLI) | payer OTHER, SELFPAY ==
--- NOTE | ~2023-12-26 | XR_ITS ---
Right wrist Technique: PA, oblique, lateral, and ulnar deviation views were obtained. Clinical History: Pain Findings: No acute fracture or dislocation is seen. Osseous alignment is anatomic. Joint spaces are p reserved. Soft tissues are unremarkable. Impression: Unremarkable right wrist radiographs. Reviewed, dictated and finalized at location . Impression: Unremarkable right wrist radiographs.
== END 2023-12-26 12:11 ==
PROVIDERS: PCP Physician Assistant; Visit Provider Physician Assistant
DX: M25.531 Pain in right wrist (principal)
CPT/HCPCS: 73110

== ENCOUNTER 2023-12-28 11:30 | Outpatient (CLI) | payer OTHER, SELFPAY ==
--- NOTE | ~2023-12-28 | US_ITS ---
EXAMINATION: US thyroid DATE: 12/28/2023 11:46 INDICATION: Abnormal thyroid function tests. TECHNIQUE: Multiple ultrasound images of the thyroid were obtained. COMPARISON: None. FINDINGS: The right thyroid lobe measures 3.9 x 1.1 x 1.2 cm. The left thyroid lobe measures 3.6 x 1.1 x 1.1 c m. There is normal echotexture and echogenicity throughout the thyroid gland. No discrete nodules id entified. Normal vascular flow is present. IMPRESSION: 1. Normal thyroid. Reviewed, dictated and finalized at location A. IMPRESSION: 1. Normal thyroid.
== END 2023-12-28 11:31 ==
PROVIDERS: PCP Physician Assistant; Visit Provider Physician Assistant
DX: R94.6 Abnormal results of thyroid function studies (principal)
CPT/HCPCS: 76536

== ENCOUNTER 2024-01-22 03:01 | Day surgery (SDC) | payer OTHER, SELFPAY ==
[2024-01-17 11:31] VITALS: BMI 28.3
--- NOTE | 2024-01-17 11:37 | PC.NURSE ---
Report to the Outpatient Waiting Room, entrance under the green pavilion located off [facility], at time _0830_ on date _[id number]_. Planned Procedure Time: _1030_. Time changes happen often and if your time is changed the preop area will call you the afternoon before. - You and your visitor will be asked to self-screen and do not enter if you have any COVID symptoms. - A mask is optional within the hospital at this time. Patients may have clear liquids (water, carbonated beverages, clear teas, apple juice) until 3 hours prior to surgery with a maximum of 20 ounces. - No food from midnight until time of surgery Take the following medications with a SIP of water the morning of surgery: __Venlafaxine and flonase DO NOT STOP ANY OF YOUR OTHER PRESCRIPTION MEDICATIONS PRIOR TO SURGERY ?EXCEPT THE FOLLOWING Medications to discontinue per physician ____None Date to take last dose Please no make-up, nail georgian, hairspray, perfume, deodorant, or body powder the day of surgery. No jewelry (including any body piercings) or valuables the day of surgery, leave them at home. Please take a shower or bath the night before, or the morning of, surgery with an antibacterial soap. Wear comfortable, loose fitting clothing. - Jewelry must be removed prior to entering the operating room. Rings and piercings that are not removed may be cut off. - The hospital will not accept responsibility for valuables. - Please leave all valuables, including medications, at home the day of surgery. If you are going home after surgery, a licensed motor coach driver must drive you home. - NO public transportation without another adult if you receive anesthesia. - We recommend that an adult stay with you for 24 hours following discharge. - We also recommend that you do not drive, make important decision, drink alcoholic beverages, or take any drugs that were not prescribed by your health care provider for at least 24 hours after your discharge time. Follow any additional instructions given to you from your surgeon. If you or anyone in your household have experienced Covid symptoms in the past week, please notify your surgeon or the nurse liaison at the phone number below for possible testing. Telephone instructions given to _Amber__and asked if any additional questions and then verbalized understanding. Patient advised to call surgeon office or pre surgery nurse liaison [phone] if any additional questions.
--- NOTE | 2024-01-21 17:33 | PM.IMHP ---
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 Insomnia Irritable bowel Irritable bowel syndrome affecting Migraine depression Preeclampsia 12/01/2019; Surgical History Surgical History History of delivery Family History Family History Mother Hypothyroid Social History Social History Social History: the patient is and has 1 child. 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 Patient denies any current tobacco use no marijuana alcohol or illicit drugs. She lives with her . Years smoked: 2 Smoking status: Never smoker Second hand tobacco smoke exposure: No Additional smoking assessment comments: Would smoke socially Alcohol intake: current Drinks per week: 1 Substance use: never Substance use type: does not use Lack of Transportation: No Lack of Food: Never True Current Housing: I Have Housing Concerned About Future Housing: No Difficulty Paying Gas/Electric Bills: No Difficulty Paying for Meds: No Currently Unemployed: No Education: High School Diploma/GED Difficulty w/ Childcare or Family Care: No Living arrangements: with family Gender identity (if verbalized by the patient): Female Spiritual care concerns: No Meds Home Medications and Allergies Home Medications Medication Instructions Recorded Confirmed Type omeprazole 20 mg capsule,delayed 20 mg PO DAILY 05/09/20 01/17/24 History release amitriptyline 10 mg tablet 30 mg PO QHS 12/28/20 01/17/24 History fluticasone propionate 50 1 - 2 spray intranasal BID #16 mL 11/19/23 01/17/24 Rx mcg/actuation nasal spray,suspension (Flonase Allergy Relief) methylphenidate HCl 10 mg tablet 54 mg PO DIRECTED 11/19/23 01/17/24 History venlafaxine 150 mg tablet,extended 150 mg PO DAILY 11/19/23 01/17/24 History release 24 hr Allergies Allergy/AdvReac Type Severity Reaction Status Date / Time bupropion [From Wellbutrin] Allergy Severe Seizure Verified 01/17/24 11:31 sulfamethoxazole Allergy Unknown Hives Verified 01/17/24 11:31 trimethoprim Allergy Unknown Seizure Verified 01/17/24 11:31 yellow dye Allergy Unknown Swelling Verified 01/17/24 11:31 of Lip/Tongue/Throat Exam Narrative: large adenoids large tonsils Assessment and Plan Assessment and plan (1) Recurrent tonsillitis: Code(s): J03.91 - Acute recurrent tonsillitis, unspecified Status: Acute Assessment and Plan: Plan OR for adenoidectomy and tonsillectomy risks discussed bleeding infection damage to surrounding structures need further procedures 3-5% chance postoperatively unchanged taste change swelled could be permanent damage any structures the clavicle by myself damage to any structure induction and maintenance of anesthesia including vocal cord paralysis hair risk of narcotic use time-out for time off school up to 2 weeks. Failure to resolve symptoms if not 2 to tonsils. Patient voiced understanding these risks and agreed. (2) Snoring: Code(s): R06.83 - Snoring Status: Acute (3) Adenoid hypertrophy: Code(s): J35.2 - Hypertrophy of adenoids Status:
[2024-01-22] VITALS (11 sets, daily range): BP systolic 100–128; BP diastolic 64–91; PULSE 75–92; RESP 11–20; TEMP 36.3–36.8; O2SAT 98–100; BMI 26.8
--- NOTE | 2024-01-22 06:36 | WPDANESEPPF ---
Anes - Initial Pre Proc Eval Procedure: Operation Date: 01/22/24 07:30 Proposed Procedures p Tonsillectomy - Shawn Alonzo MD Date/Time: 01/22/24 06:36 Surgeon: Shawn Alonzo MD Pre Op Diagnosis: Recurrent Tonsillitis Patient Data Age: 38 Gender: F Height: 1.52 m Weight: 65.9 kg Allergies Allergy/AdvReac Type Severity Reaction Status Date / Time bupropion [From Wellbutrin] Allergy Severe Seizure Verified 01/17/24 11:31 sulfamethoxazole Allergy Unknown Hives Verified 01/17/24 11:31 trimethoprim Allergy Unknown Seizure Verified 01/17/24 11:31 yellow dye Allergy Unknown Swelling Verified 01/17/24 11:31 of Lip/Tongue/Throat Home Medications Medication Instructions Recorded Confirmed Type omeprazole 20 mg capsule,delayed 20 mg PO DAILY 05/09/20 01/17/24 History release amitriptyline 10 mg tablet 30 mg PO QHS 12/28/20 01/17/24 History fluticasone propionate 50 1 - 2 spray intranasal BID #16 mL 11/19/23 01/17/24 Rx mcg/actuation nasal spray,suspension (Flonase Allergy Relief) methylphenidate HCl 10 mg tablet 54 mg PO DIRECTED 11/19/23 01/17/24 History venlafaxine 150 mg tablet,extended 150 mg PO DAILY 11/19/23 01/17/24 History release 24 hr Patient hx anesthesia problems: none Family hx anesthesia problems: none Results Review: All pre-operative results and documents have been reviewed as part of the pre-operative evaluation. 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 Insomnia Irritable bowel Irritable bowel syndrome affecting Migraine depression Preeclampsia 12/01/2019; Surgical History Surgical History History of delivery Family History Family History Mother Hypothyroid Social History Social History Social History: the patient is and has 1 child. 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 Patient denies any current tobacco use no marijuana alcohol or illicit drugs. She lives with her . Years smoked: 2 Smoking status: Never smoker Second hand tobacco smoke exposure: No Additional smoking assessment comments: Would smoke socially Alcohol intake: current Drinks per week: 1 Substance use: never Substance use type: does not use Lack of Transportation: No Lack of Food: Never True Current Housing: I Have Housing Concerned About Future Housing: No Difficulty Paying Gas/Electric Bills: No Difficulty Paying for Meds: No Currently Unemployed: No Education: High School Diploma/GED Difficulty w/ Childcare or Family Care: No Living arrangements: with family Gender identity (if verbalized by the patient): Female Spiritual care concerns: No Anes - Eval Final PreProcedure Day of Procedure 01/22/24 06:36 Patient weight: normal Heart: regular rate and rhythm Lungs: clear to auscultation Airway: Mallampati scale class 1 Neurological: alert and oriented Last oral intake: >/= 8 hours ASA classification: II Emergent: no Anesthetic plan: proceed Anesthesia type and monitoring: general ETT and standard monitoring Results Review: All pre-operative results and documents have been reviewed as part of the pre-operative evaluation. Informed Consent: The patient's anesthetic plan and its attendant risks and benefits were discussed with the patient/family/POA. Questions were solicited and answers provided to the satisfaction of the patient/family/POA.
[2024-01-22] MEDS: LACTATED RINGERS 1,000 ML 30 ML IV CONT (07:00)
[2024-01-22] MEDS: ACETAMINOPHEN 500 MG TABLET 1000 MG PO (07:00)
--- NOTE | 2024-01-22 07:18 | WPDHPUPDATE1 ---
History and Physical Update Update Date/Time: 01/22/24 07:18 History and Physical has been reviewed, including an updated exam of the patient. There are NO changes in the patient's condition. Risks, benefits, and alternatives have been discussed and questions answered. Patient agrees to proceed with procedure.
--- NOTE | 2024-01-22 08:19 | W.PM.PROC2 ---
Procedure Note - Detailed Date of Procedure 01/22/24 Pre-op Diagnosis Recurrent Tonsillitis Post-op Diagnosis Same Procedure Performed Tonsillectomy Surgeon Shawn Alonzo MD Anesthesia General Indications see above Findings scarred in tonsils mildly cellulitic Description of Procedure patient identified consent verified preop. Patient brought to operating room. Time-out performed. General anesthesia induced endotracheal tube secured. Patient prepped draped position procedure confirmed 2nd time-out performed. Bed rotated. McIvor mouth gag inserted to reveal scarred in tonsils. They were removed bilaterally extracapsular plane using Bovie electrocautery setting of 8. Any bleeders controlled with bipolar electrocautery at a setting of 8 Bovie suction electrocautery setting of 10. Minimal bleeding. In-between tonsils, as this was a bilateral procedure, McIvor mouth gag lowered reopened. After tonsils were out adenoids reviewed essentially non-existent. McIvor mouth gag lowered and reopened 30 seconds later to reveal no further bleeding. Blood loss 1 cc. I performed all dictated portions the procedure no complications. Care the patient is in back to Anesthesiology. Patient taken to PACU. Estimated Blood Loss 1 Drains No Packing No Pathology Yes Complications No immediate complications Condition Stable Disposition PACU [facility] Billing Surgery - Charge Forward: Surgery Billing
[2024-01-22] MEDS: fentaNYL CITRATE INJ (*CRX) 100 MCG/2 ML VIAL 25 MCG IV PUSH ×4 (08:26→08:42)
[2024-01-22] MEDS: HYDROmorphone HCL INJ (*CRX) 1 MG/ML SYR 0.5 MG IV PUSH ×2 (08:50→09:00)
[2024-01-22] MEDS: oxyCODONE HCL (*CRX) 5 MG TAB IR PO (09:31)
== END 2024-01-22 10:13 | disposition home or self-care (01) ==
PROVIDERS: PCP Physician Assistant; Visit Provider Otolaryngology
PROC: (CPT 42826; principal; 2024-01-22 07:30)
DX: J35.01 Chronic tonsillitis (principal); J03.91 Acute recurrent tonsillitis, unspecified; E03.9 Hypothyroidism, unspecified
CPT/HCPCS: 42826; 88304; A9270; J0330; J1100; J1170; J2250; J2405; J2704; J3010; J7120

== ENCOUNTER 2024-01-29 09:26 | Outpatient (CLI) | payer OTHER, SELFPAY ==
--- NOTE | 2024-01-29 11:30 | NEURO_ITS ---
Impression: # Complains of right wrist pain. Non-diabetic. # Right ulnar neuropathy around the elbow. # No Carpal Tunnel Syndrome # Normal needle/EMG exam proximally and distally. Nerve Conduction Studies Anti Sensory Summary Table Stim Site NR Peak (ms) P-T Amp (?V) Site1 Site2 Delta-P (ms) Dist (cm) Calderon (m/s) Right Median Anti Sensory (2-3nd Digit) Wrist 2.3 82.0 Wrist 2-3nd Digit 2.3 14.0 61 Wrist 2.3 93.7 Wrist 2-3nd Digit 2.3 14.0 61 Right Radial Anti Sensory (Base 1st Digit) Wrist 2.0 57.7 Wrist Base 1st Digit 2.0 0.0 Right Ulnar Anti Sensory (5th Digit) Wrist 2.2 66.2 Wrist 5th Digit 2.2 14.0 64 Motor Summary Table Stim Site NR Onset (ms) O-P Amp (mV) Site1 Site2 Delta-0 (ms) Dist (cm) Calderon (m/s) Right Median Motor (Abd Poll Brev) Wrist 2.8 4.5 Elbow Wrist 4.1 26.0 63 Elbow 6.9 4.3 ELB/ADM Wrist 0.0 0.0 ELB/ADM 2.8 2.8 Erbs ELB/ADM 4.3 0.0 Erbs 7.1 2.7 Right Ulnar Motor (Abd Dig Minimi) Wrist 2.6 4.7 A Elbow Wrist 5.1 27.0 53 A Elbow 7.7 4.1 B Elbow Wrist 3.1 17.0 55 B Elbow 5.7 5.4 F Wave Studies NR F-Lat (ms) L-R F-Lat (ms) Right Median (Mrkrs) (Abd Poll Brev) 24.14 Right Ulnar (Mrkrs) (Abd Dig Min) 25.45 EMG Side Muscle Nerve Root Ins Act Fibs Amp Dur Recrt Comment Right 1stDorInt Ulnar C8-T1 Nml Nml Nml Nml Nml Right Ext Indicis Radial (Post Int) C7-8 Nml Nml Nml Nml Nml Right Ext Digitorum Radial (Post Int) C7-8 Nml Nml Nml Nml Nml Right BrachioRad Radial C5-6 Nml Nml Nml Nml Nml Right PronatorTeres Median C6-7 Nml Nml Nml Nml Nml Right Abd Poll Brev Median C8-T1 Nml Nml Nml Nml Nml Right ABD Dig Min Ulnar C8-T1 Nml Nml Nml Nml Nml MTDD
== END 2024-01-29 09:27 | disposition home or self-care (01) ==
PROVIDERS: PCP Physician Assistant; Visit Provider Physician Assistant
DX: M25.531 Pain in right wrist (principal); G56.21 Lesion of ulnar nerve, right upper limb
CPT/HCPCS: 95886; 95909